=== PATIENT | female | born 1995 | race Caucasian/White ===

== ENCOUNTER 2021-11-02 14:55 | Emergency (ER) | payer MEDICAID, SELFPAY ==
[2021-11-02 15:40] VITALS: BP 135/63; PULSE 103; RESP 20; TEMP 37.2; O2SAT 98; BMI 39.9
[2021-11-02 17:24] LABS: MANUAL DIFF FLAG NO
[2021-11-02 17:36] LABS: Basophils Percent Auto 0.5 % (0-2); Eosinophils Percent Auto 0.3 % (0-4); Hematocrit 38.2 % (37.0-47.0); Hemoglobin 12.1 g/dl (12.0-16.0); Imm Gran Abs Auto 0.05 X10*3/uL (0.00-0.03); Imm Gran Pct Auto 0.8 % (0.0-0.4); Lymphocytes Absolute Auto 0.5 X10*3/uL (1.2-4.9); Lymphocytes Percent Auto 8.2 % (20-40); Mean Corpuscular HGB Conc 31.7 g/dl (31.0-35.0); Mean Corpuscular Hemoglobin 23.7 pg (27.0-33.0); Mean Corpuscular Volume 74.9 fL (80.0-98.0); Monocytes Absolute Auto 0.6 X10*3/uL (0.1-1.2); Monocytes Percent Auto 9.1 % (2-11); Neutrophils Absolute Auto 5.4 x10*3/uL (2.0-8.3); Neutrophils Percent Auto 81.1 % (45-73); Platelet Count 259 X10*3/uL (160-400); Red Cell Distribution Width 14.6 % (11.0-16.0); White Blood Count 6.6 X10*3/uL (4.8-10.8)
[2021-11-02 17:43] LABS: Anion Gap 11 (12-20); Blood Urea Nitrogen 10 mg/dL (9-16); Calcium 9.3 mg/dL (8.4-10.2); Carbon Dioxide 27 mmol/L (22-29); Chloride 104 mmol/L (96-108); Creatinine Clr Calc Pharmacy 142.6; Estimated Glomerular Filt Rate > 60; Glucose Random 97 mg/dL (60-115); Sodium 138 mmol/L (135-145)
[2021-11-02 21:52] VITALS: BP 129/79; PULSE 108; RESP 19; TEMP 38.7; O2SAT 98
--- NOTE | 2021-11-02 22:15 | ED_ITS ---
HPI - Nausea/Vomiting/Diarrhea General Chief complaint: Nausea/Vomiting/Diarrhea Stated complaint: Fever/Vomiting Source: patient Mode of arrival: ambulatory Limitations: no limitations History of Present Illness HPI Narrative: 26-year-old female presents with 1 day of fevers, headache, nausea and vomiting. MD elicited complaint: nausea and vomiting Onset (ago): day(s) (1) Description of vomiting: watery Associated nausea: Yes Associated abdominal pain: No Location of pain: none Exacerbating factors: movement and exertion Relieving factors: rest Context: sick contacts Associated symptoms: myalgias, cough, fever/chills, headaches, loss of appetite and nausea/vomiting Related Data Allergies Allergy/AdvReac Type Severity Reaction Status Date / Time No Known Allergies Allergy Unverified 03/25/20 16:32 Review of Systems Review of Systems: Constitutional: No Weight loss, positive Fever, positive Chills, No Night S weats, positive Fatigue, No Malaise ENT/Mouth: No Hearing loss, No Ear Pain, No Nasal Congestion, No Sinus Pain, No Hoarseness, No sore throat, No Rhinorrhea, No Swallowing Difficulty Eyes: No Eye Pain, No Swelling, No Redness, No Foreign Body, No Discharge, No Vision Changes Cardiovascular: No Chest Pain, No SOB, No Dyspnea on Exertion, No Orthopnea, No Edema, No Palpitations Respiratory: Positive Cough, No Sputum, No Wheezing, No Smoke Exposure, No Dyspnea Gastrointestinal: Positive Nausea, Positive Vomiting, no Diarrhea, no abdominal Pain, No Hematochezia, No Melena Genitourinary: no irregular bleeding, No Dysuria, No Urinary Frequency, No Hematuria, No Urinary Incontinence, No Urgency, No Flank Pain, No Urinary Flow Changes, No Hesitancy Musculoskeletal: No joint pain, No Myalgias, No Joint Swelling Skin: No Skin Lesions, No rash Neuro: No Weakness, No Numbness, No Paresthesias, No Loss of Consciousness, No Dizziness, No Headache Psych: No Anxiety/Panic, No Depression, No SI/HI/AH/VH, No Social Issues Heme/Lymph: No Bruising, No Bleeding,No Lymphadenopathy Endocrine: No Polyuria, No Polydipsia, No Temperature Intolerance Yes all other systems are reviewed and are negative Gastrointestinal: Gastrointestinal: Reports nausea PMFSH Past Medical History Attestation statement: The following information was validated with the patient. Source: old records reviewed Medical History No known health problems Social History Social History Alcohol intake: never Patient Tobacco Use Status: Current everyday Tobacco user Use of substances other than those prescribed or required for medical reasons: No Advance Directives: No Advance Directives Information Provided: No Patient : No Physical Exam Vital Signs: Vital Signs: Last Vital Signs Temp 101.6 F H 11/02/21 21:52 Pulse 108 H 11/02/21 21:52 Resp 19 11/02/21 21:52 BP 129/79 11/02/21 21:52 Pulse Ox 98 11/02/21 21:52 BMI result Body Mass Index 39.9 Appearance: Alert. Oriented X3. Mild distress. Eyes: Pupils equal, round and reactive to light. EOMI. Sclera nonicteric. ENT: Pharynx normal. Dry mucous membranes. Neck: Normal inspection. Neck supple. CVS: Tachycardic heart rate and rhythm. Apical pulse with pulses to extremities. Respiratory: No respiratory distress. Breath sounds normal. Abdomen: Soft and nontender. Skin: Skin warm and dry. Normal skin color. Normal skin turgor. Extremities: No lower extremity edema. Gait well-balanced well coordinated. Neuro: No motor deficit. No sensory deficit. Cranial nerves 2-12 intact. Course Course Course Narrative: 26-year-old female presents with 1 day of flu-like symptoms. 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 Labs drawn while patient was in the emergency department waiting room. Unremarkable, will order influenza COVID test. In the interim, will give Zofran and Toradol for fever management as well as 1 L of fluids. 22:45 influenza positive. 23:24 patient states to feel better after L of fluids and Zofran. Will discharge home with supportive measures. Patient verbalizes understanding of and agrees to plan of care. Verbalized understanding of signs and symptoms indicating need for emergent intervention. MDM - Nausea/Vomiting/Diarrhea MDM Narrative Medical decision making narrative: Influenza, COVID Differential Diagnosis Differential diagnosis: Likely gastroenteritis and dehydration Medical Records Attestation: I reviewed the patient's medical records. Lab Data Attestation: I reviewed the patient's lab results. Result diagrams: 11/02/21 17:18 11/02/21 17:18 Labs: Lab Results 11/02/21 11/02/21 11/02/21 Range/Units 17:18 17:18 21:56 WBC 6.6 (4.8-10.8) X10*3/uL RBC 5.10 (4.20-5.50) X10*6/uL Hgb 12.1 (12.0-16.0) g/dl Hct 38.2 (37.0-47.0) % MCV 74.9 L (80.0-98.0) fL MCH 23.7 L (27.0-33.0) pg MCHC 31.7 (31.0-35.0) g/dl RDW 14.6 (11.0-16.0) % Plt Count 259 (160-400) X10*3/uL MPV 10.0 (9.4-12.3) fL Immature Gran % (Auto) 0.8 H (0.0-0.4) % Neut % (Auto) 81.1 H (45-73) % Lymph % (Auto) 8.2 L (20-40) % [place] % (Auto) 9.1 (2-11) % Eos % (Auto) 0.3 (0-4) % Baso % (Auto) 0.5 (0-2) % Lymph # (Auto) 0.5 L (1.2-4.9) X10*3/uL [place] # (Auto) 0.6 (0.1-1.2) X10*3/uL Eos # (Auto) 0.0 (0.0-0.4) X10*3/uL Baso # (Auto) 0.0 (0.0-0.2) X10*3/uL Abs Immat Gran (auto) 0.05 H (0.00-0.03) X10*3/uL Absolute Neuts (auto) 5.4 (2.0-8.3) x10*3/uL Absolute Nucleated RBC 0.000 (0.0-0.012) X10*3/uL Nucleated RBC % (auto) 0.0 (0.0-0.2) /100WBC Sodium 138 (135-145) mmol/L Potassium 4.0 (3.3-5.1) mmol/L Chloride 104 (96-108) mmol/L Carbon Dioxide 27 (22-29) mmol/L Anion Gap 11 L (12-20) BUN 10 (9-16) mg/dL Creatinine 0.74 (0.5-1.4) mg/dL Estim Creat Clear Calc 142.6 Estimated GFR > 60 Random Glucose 97 (60-115) mg/dL Calcium 9.3 (8.4-10.2) mg/dL COVID-19 (ALEX) (Negative) COVID-19 Clin Com Influenza Type A (JEANIE) Positive A (Negative) Influenza Type B (JEANIE) Negative (Negative) Influenza A & B Note See Note 11/02/21 Range/Units 21:56 WBC (4.8-10.8) X10*3/uL RBC (4.20-5.50) X10*6/uL Hgb (12.0-16.0) g/dl Hct (37.0-47.0) % MCV (80.0-98.0) fL MCH (27.0-33.0) pg MCHC (31.0-35.0) g/dl RDW (11.0-16.0) % Plt Count (160-400) X10*3/uL MPV (9.4-12.3) fL Immature Gran % (Auto) (0.0-0.4) % Neut % (Auto) (45-73) % Lymph % (Auto) (20-40) % [place] % (Auto) (2-11) % Eos % (Auto) (0-4) % Baso % (Auto) (0-2) % Lymph # (Auto) (1.2-4.9) X10*3/uL [place] # (Auto) (0.1-1.2) X10*3/uL Eos # (Auto) (0.0-0.4) X10*3/uL Baso # (Auto) (0.0-0.2) X10*3/uL Abs Immat Gran (auto) (0.00-0.03) X10*3/uL Absolute Neuts (auto) (2.0-8.3) x10*3/uL Absolute Nucleated RBC (0.0-0.012) X10*3/uL Nucleated RBC % (auto) (0.0-0.2) /100WBC Sodium (135-145) mmol/L Potassium (3.3-5.1) mmol/L Chloride (96-108) mmol/L Carbon Dioxide (22-29) mmol/L Anion Gap (12-20) BUN (9-16) mg/dL Creatinine (0.5-1.4) mg/dL Estim Creat Clear Calc Estimated GFR Random Glucose (60-115) mg/dL Calcium (8.4-10.2) mg/dL COVID-19 (ALEX) Negative (Negative) COVID-19 Clin Com See Note Influenza Type A (JEANIE) (Negative) Influenza Type B (JEANIE) (Negative) Influenza A & B Note Discharge Plan Discharge Clinical Impression: Influenza A Patient Disposition: Home, Self-Care Instructions: Influenza (ED) Additional Instructions: You tested positive for influenza A. Please drink plenty of fluids. Alternate Tylenol 650 mg every 6 hours and Motrin 600 mg every 6 hours as needed for fever and pain management. Write down what time you take these medications to prevent accidental overdose. Follow-up with primary care physician as needed. Return to the emergency department if symptoms worsen. Thank you for choosing this emergency department for evaluation. Please follow-up with primary care physician as needed. Return to the emergency department for any new, concerning, or worsening symptoms. Referrals: Magalys Leslie DO [Primary Care Provider] - (Influenza a) Stand Alone Forms: Work/School Release
[2021-11-02 22:16] LABS: IDNOW Serial# 16C4AD1C
[2021-11-02 22:17] LABS: COVID-19 Test Negative (Negative); Influenza A Positive (Negative); Influenza B2 Negative (Negative)
[2021-11-02] MEDS: 0.9 % Sodium Chloride 1,000 ML 999 ML IVCONT (22:42)
[2021-11-02] MEDS: ondansetron HCL 4 MG/2 ML VIAL IVPUSH (22:44)
[2021-11-02] MEDS: Ketorolac Tromethamine 30 MG/ML VIAL IVPUSH (22:44)
== END 2021-11-03 00:27 | disposition home or self-care (01) ==
PROVIDERS: Emergency Provider Emergency Medicine; PCP Family Medicine
DX: J10.1 Influenza due to other identified influenza virus with other respiratory manifestations (principal); Z20.822 Contact with and (suspected) exposure to COVID-19
CPT/HCPCS: 36415; 80048; 85025; 87502; 87635; 96361; 96374; 96375; 99284; J1885; J2405

== ENCOUNTER 2022-06-15 10:15 | Emergency (ER) | payer MEDICAID, SELFPAY ==
[2022-06-15 10:24] VITALS: BP 121/72; PULSE 77; RESP 20; TEMP 36.8; O2SAT 100; BMI 38.2
--- NOTE | 2022-06-15 10:44 | ED.URI ---
HPI - URI/Sore Throat General Chief Complaint: Upper Respiratory Symptoms Stated Complaint: Sore throat/Fever/Ear pain Time Seen by Provider: 06/15/22 10:37 Source: patient and family (fiance at bedside) Mode of arrival: ambulatory Limitations: no limitations History of Present Illness HPI Narrative: Patient is a 26 year old female with no siginificatnt PMH who presents today with a 3 day history of sore throat, headache and body aches. Patient reports that these symptoms started all together but the body aches resolved after a day. Patient also reports a fever of 101 F, two days ago which resolved after taking OTC tylenol. Patient reports associated symptom of sinus pressure, nasal congestion and right ear pain that began a day ago. Patient denies any discharge or loss of hearing in her right ear. Patient denies cough, SOB, dyspnea on exertion, wheezing, nausea, vomiting, diarrhea and abdominal pain. Patient denies recent travel, recent hospitalization and sick contacts. Patient denies any other issues, concerns or complaints at this time. MD elicited complaint: fever (101 F), sore throat, nasal congestion and sinus pain Onset (ago): day(s) (3 days) Consistency: intermittent Severity: mild Able to tolerate fluids by mouth: Yes Exacerbating factors: nothing Relieving factors: OTC cold medicine Associated symptoms: fever, headache, nasal congestion, sore throat and ear pain (right ear pain) Treatments prior to arrival: acetaminophen Related Data Previous Rx's Medication Instructions Recorded amoxicillin 875 mg-potassium 1 tab PO BID pharyngitis 10 days 06/15/22 clavulanate 125 mg tablet #20 tabs Allergies Allergy/AdvReac Type Severity Reaction Status Date / Time No Known Allergies Allergy Unverified 03/25/20 16:32 Review of Systems Review of Systems: Constitutional : No Weight loss, + Fever of 101F, No Chills, No Night Sweats, No Fatigue, No Malaise ENT/Mouth : No Hearing loss, + right ear Pain, + Nasal Congestion, + Sinus Pain, No Hoarseness, + sore throat, No Rhinorrhea, No Swallowing Difficulty Eyes: No Eye Pain, No Swelling, No Redness, No Foreign Body, No Discharge, No Vision Changes Cardiovascular : No Chest Pain, No SOB, No Dyspnea on Exertion, No Orthopnea, No Edema, No Palpitations Respiratory : No Cough, No Sputum, No Wheezing, No Smoke Exposure, No Dyspnea Gastrointestinal : No Nausea, No Vomiting, No Diarrhea, No Constipation, No abdominal Pain, No Hematochezia, No Melena Genitourinary : no irregular bleeding, No Dysuria, No Urinary Frequency, No Hematuria, No Urinary Incontinence, No Urgency, No Flank Pain, No Urinary Flow Changes, No Hesitancy Musculoskeletal : No joint pain, No Myalgias, No Joint Swelling Skin : No Skin Lesions, No rash Neuro : No Weakness, No Numbness, No Paresthesias, No Loss of Consciousness, No Dizziness, + Headache Psych : No Anxiety/Panic, No Depression, No SI/HI/AH/VH, No Social Issues, Heme/Lymph: No Bruising, No Bleeding,No Lymphadenopathy Endocrine : No Polyuria, No Polydipsia, No Temperature Intolerance Yes all other systems are reviewed and are negative [facility] [place] Past Medical History Attestation statement: The following information was validated with the patient. Source: old records reviewed, obtained from family and nursing notes reviewed Medical History No known health problems Social History Social History Alcohol intake: never Patient Tobacco Use Status: Current everyday Tobacco user Advance Directives: No Advance Directives Information Provided: No Physical Exam Vital Signs: Vital Signs: Last Vital Signs Temp 98.3 F 06/15/22 10:24 Pulse 77 06/15/22 10:24 Resp 20 06/15/22 10:24 BP 121/72 06/15/22 10:24 Pulse Ox 100 06/15/22 10:24 O2 Del Method 06/15/22 10:24 BMI result Body Mass Index 38.2 vital signs have been reviewed as normal and appeared to be correct. Blood pressure normal. Heart rate normal. Respiration rate normal. Temperature normal. Oxygen saturation normal. Appearance: Alert. Oriented X3. No acute distress. Head: Normal external exam. Normocephalic. Atraumatic. Eyes: PERRLA. EOMI. Conjunctiva and sclera normal. Eyelids normal. ENT: EAC normal. TM's Normal.Tenderness elicited during palpation of right tragus Pharynx normal. Uvula midline. Moist mucous membranes. White exudates noted in back of throat. No lesions/ulcerations or masses noted on the tongue. Normal voice. No trismus noted. No drooling noted. No muffled voice noted. Neck: Normal inspection. Neck supple. FROM. +anterior cervical lymphadenopathy with tenderness to palpation of neck bilaterally. Thyroid Normal. No tracheal deviation noted. No crepitus is noted. No neck mass noted. No signs of trauma noted. CVS: Normal heart rate and rhythm. Heart sound normal. No murmurs/rales/gallops. Respiratory: No respiratory distress. Painless inspiration. Breath sounds normal. No wheezes/rales/rhonchi noted. Chest non tender. No crepitus is noted. No accessory muscle usage noted or decreased air movement noted. No signs of trauma. Abdomen: Soft and non tender. Non distended. Back: Full range of motion noted. Non tender. Skin: Skin warm and dry. Normal skin color. Normal skin turgor. No rashes/lesions/lacerations noted. Extremities: Extremities exhibit normal range of motion and non tender. Neuro: Oriented X 3. No motor deficit. No sensory deficit. Normal steady gait. No focal neuro deficits noted. CN's II-XII intact bilaterally? Vascular: Normal cap refill. No cyanosis noted to upper extremity nails. Course Course Course Narrative: Patient is a 26 year old female with no siginificatnt PMH who presents today with a 3 day history of sore throat, headache and body aches, fever, right ear pain. Patient denies cough, SOB, dyspnea on exertion, trouble swallowing, wheezing, nausea, vomiting, diarrhea and abdominal pain. Patient denies recent travel, recent hospitalization and sick contacts. On physical exam, patient was alert and oriented and in no acute respiratory distress. Mucous membranes were moist and pink with white exudates noted on back of throat. Patient had anterior cervical lymphadenopathy with tenderness to palpation of anterior neck bilaterally. Tenderness elicited during palpation of right tragus. No abnormal discharge noted in right ear. TM intact with no signs of perforation. Patient's swab came back positive for strep throat confirming our suspicion for acute bacterial pharyngitis. Plan: Patient will be treated with amoxicillin-clavulanate PO BID for 10 days. Reevaluation(s) Reevaluation #1: patient negative for COVID/RSV/ flu. Patient positive for bacterial pharyngitis. Will treat with the Augmentin for 10 days instructions return if any new or worsening symptoms. Patient understands agrees with this plan. Time: 11:44 Discharge Plan Discharge Clinical Impression: Acute bacterial pharyngitis Patient Disposition: Home, Self-Care Instructions: Pharyngitis (ED) Prescriptions: New amoxicillin-pot clavulanate 875-125 mg tablet 1 tab PO BID 10 Days Qty: 20 0RF Referrals: Magalys Leslie DO [Primary Care Provider] - 2 days Stand Alone Forms: Work/School Release
[2022-06-15 10:58] LABS: Strep A Nucleic Acid Positive (Negative)
[2022-06-15 11:33] LABS: Influenza A PCR NEGATIVE (Negative); Influenza B PCR NEGATIVE (Negative); Resp Syncy Virus RNA Qual PCR NEGATIVE (Negative); SARS COV2 PCR INHOUSE NEGATIVE (Negative)
== END 2022-06-15 12:16 | disposition home or self-care (01) ==
PROVIDERS: Emergency Provider Emergency Medicine; PCP Family Medicine
DX: J02.9 Acute pharyngitis, unspecified (principal); H92.03 Otalgia, bilateral; R50.9 Fever, unspecified; R51.9 Headache, unspecified; Z20.822 Contact with and (suspected) exposure to COVID-19; F17.210 Nicotine dependence, cigarettes, uncomplicated; Z71.6 Tobacco abuse counseling
CPT/HCPCS: 0241U; 87651; 99283

== ENCOUNTER 2022-07-19 22:30 | Emergency (ER) | payer MEDICAID, SELFPAY ==
[2022-07-19 22:34] VITALS: BP 136/72; PULSE 77; RESP 18; TEMP 36.6; O2SAT 100; BMI 39.1
[2022-07-19 22:58] LABS: Appearance Urine Hazy; Color Urine Yellow; Glucose Urine UA Negative (Negative); Leukocyte Esterase Urine Trace (Negative); Nitrite Urine Negative (Negative); Specific Gravity - Urine 1.015 (1.005-1.025); UMIC TRIGGER UACC YES; Urine Blood Large (3+) (Negative); Urine Ketones Negative (Negative); Urine Protein 30 (1+) mg/dL (Neg-Trace)
[2022-07-19 23:01] LABS: UPreg QC Valid YES; Urine Pregnancy NEGATIVE (NEGATIVE)
[2022-07-19 23:06] LABS: Bacteria Urine 1+ (None Seen); Hyaline Casts Urine 0-2 /LPF (0-2); RBC Urine >20 /HPF (0-2); Squamous Epithelial Cell Urine 0-2 /HPF (0-2); UACC Culture Trigger YES; WBC Urine >50 /HPF (0-5)
--- NOTE | 2022-07-19 23:12 | ED_ITS ---
HPI - Female Genitourinary General Chief complaint: Urogenital-Female Stated complaint: burning when urinating Time Seen by Provider: 07/19/22 23:07 Source: patient Mode of arrival: ambulatory Limitations: no limitations History of Present Illness HPI Narrative: Patient comes to the emergency room complaining of 1 day of burning with urination, hematuria and frequency. No fever chills, no flank pain. Related Data Previous Rx's Medication Instructions Recorded amoxicillin 875 mg-potassium 1 tab PO BID pharyngitis 10 days 06/15/22 clavulanate 125 mg tablet #20 tabs nitrofurantoin 100 mg PO Q12H 7 days #13 caps 07/19/22 monohydrate/macrocrystals 100 mg capsule (Macrobid) phenazopyridine 100 mg tablet 100 mg PO TID 6 doses #6 tabs 07/19/22 Allergies Allergy/AdvReac Type Severity Reaction Status Date / Time No Known Allergies Allergy Verified 07/19/22 22:37 Review of Systems Review of Systems: Constitutional : No Weight loss, No Fever, No Chills, No Night Sweats, No Fatigue, No Malaise ENT/Mouth : No Hearing loss, No Ear Pain, No Nasal Congestion, No Sinus Pain, No Hoarseness, No sore throat, No Rhinorrhea, No Swallowing Difficulty Eyes: No Eye Pain, No Swelling, No Redness, No Foreign Body, No Discharge, No Vision Changes Cardiovascular : No Chest Pain, No SOB, No Dyspnea on Exertion, No Orthopnea, No Edema, No Palpitations Respiratory : No Cough, No Sputum, No Wheezing, No Smoke Exposure, No Dyspnea Gastrointestinal : No Nausea, No Vomiting, No Diarrhea, No Constipation, No abdominal Pain, No Hematochezia, No Melena Genitourinary : no irregular bleeding, complaining of dysuria, hematuria, frequency Musculoskeletal : No joint pain, No Myalgias, No Joint Swelling Skin : No Skin Lesions, No rash Neuro : No Weakness, No Numbness, No Paresthesias, No Loss of Consciousness, No Dizziness, No Headache Psych : No Anxiety/Panic, No Depression, No SI/HI/AH/VH, No Social Issues, Heme/Lymph: No Bruising, No Bleeding,No Lymphadenopathy Endocrine : No Polyuria, No Polydipsia, No Temperature Intolerance [facility] Past Medical History Medical History No known health problems Social History Social History Alcohol intake: never Patient Tobacco Use Status: Current everyday Tobacco user Advance Directives: No Advance Directives Information Provided: No Physical Exam Vital Signs: Vital Signs: Last Vital Signs Temp 97.9 F 07/19/22 22:34 Pulse 77 07/19/22 22:34 Resp 18 07/19/22 22:34 BP 136/72 07/19/22 22:34 Pulse Ox 100 07/19/22 22:34 O2 Del Method 07/19/22 22:34 BMI result Body Mass Index 39.1 Const: Other: Appearance: Alert. Oriented X3. No acute distress. Well-appearing Eyes: Pupils equal, round and reactive to light. ENT: Pharynx normal. Neck: Normal inspection. Neck supple. No lymph nodes noted. No crepitus CVS: Normal heart rate and rhythm. Pulses normal. Normal S1 and S2 Respiratory: No respiratory distress. Breath sounds normal. No Wheezing. No rales Abdomen: Soft and nontender. No rigidity. No distention. No flank pain Skin: Skin warm and dry. Normal skin color. Normal skin turgor. Extremities: No lower extremity edema. No Lacerations. No Rash Neuro: Oriented X 3. No motor deficit. No sensory deficit. Moving all extremities. No slurred speech. CN 2 through 12 grossly intact Psych: calm, cooperative, normal affect Course Course Course Narrative: Patient was given the 1st dose of Macrobid and phenazopyridine in the emergency room. Pyelonephritis not suspected. Vitals normal, sepsis not suspected Medical Decision Making Differential Diagnosis Differential Diagnoses: The differential diagnosis associated with the presentation includes (UTI, dysuria) Lab Data MDM Lab Attestation statement: I reviewed the patient's lab results. Labs: Lab Results 07/19/22 07/19/22 Range/Units 22:47 22:47 Urine Color Yellow Urine Appearance Hazy Urine pH 7.0 (5.0-9.0) Ur Specific [place] 1.015 (1.005-1.025) Urine Protein 30 (1+) H (Neg-Trace) mg/dL Urine Glucose (UA) Negative (Negative) mg/dL Urine Ketones Negative (Negative) mg/dL Urine Blood Large (3+) H (Negative) Urine Nitrite Negative (Negative) Ur Leukocyte Esterase Trace H (Negative) Urine RBC >20 H (0-2) /HPF Urine WBC >50 H (0-5) /HPF Ur Squamous Epith Cells 0-2 (0-2) /HPF Urine Bacteria 1+ (None Seen) Hyaline Casts 0-2 (0-2) /LPF Urine Test NEGATIVE (NEGATIVE) Discharge Plan Discharge Clinical Impression: Urinary tract infection Patient Disposition: Home, Self-Care Instructions: Urinary Tract Infection in Women (ED) Additional Instructions: Please note that phenazopyridine of the medications will make your urine look very red/orange. Please follow-up with your primary care physician tomorrow. If you have any worsening or new symptoms, please return to the emergency room or call 911. Prescriptions: New nitrofurantoin monohyd/m-cryst [Macrobid] 100 mg capsule 100 mg PO Q12H 7 Days Qty: 13 0RF Rx Instructions: must administer with a meal/food phenazopyridine 100 mg tablet 100 mg PO TID Qty: 6 0RF No Action amoxicillin-pot clavulanate 875-125 mg tablet 1 tab PO BID 10 Days Qty: 20 0RF
[2022-07-19] MEDS: Phenazopyridine HCL 100 MG TABLET PO (23:29)
[2022-07-19] MEDS: Nitrofurantoin Monohyd/M-Cryst 100 MG CAPSULE PO (23:29)
== END 2022-07-19 23:32 | disposition home or self-care (01) ==
PROVIDERS: Emergency Provider Emergency Medicine; PCP Family Medicine
DX: N39.0 Urinary tract infection, site not specified (principal); R30.0 Dysuria; F17.210 Nicotine dependence, cigarettes, uncomplicated; Z71.6 Tobacco abuse counseling; Z79.899 Other long term (current) drug therapy
CPT/HCPCS: 81001; 81003; 81025; 87086; 87088; 87186; 99283

== ENCOUNTER 2022-12-13 18:30 | Emergency (ER) | payer MEDICAID, SELFPAY ==
[2022-12-13 18:40] VITALS: BP 138/90; PULSE 84; RESP 18; TEMP 36.6; O2SAT 98; BMI 39.9
--- NOTE | 2022-12-13 18:43 | ED_ITS ---
HPI - General Adult General Chief complaint: General Medical Stated complaint: congestion, sore throat, nauseous Time Seen by Provider: 12/13/22 18:48 Source: patient, RN notes reviewed and old records reviewed Mode of arrival: ambulatory Limitations: no limitations History of Present Illness HPI narrative: 27-year-old female presents for evaluation of congestion, sore throat. Patient reports that she has had congestion for the last 2 weeks She states that her symptoms were worsening and now she has a sore throat, nausea and body aches that started today She has not taken any medication or bleeding her symptoms. Denies any fevers or chills The patient has a dry cough denies any shortness of breath Patient denies any medical history Related Data Previous Rx's Medication Instructions Recorded amoxicillin 875 mg-potassium 1 tab PO BID pharyngitis 10 days 06/15/22 clavulanate 125 mg tablet #20 tabs nitrofurantoin 100 mg PO Q12H 7 days #13 caps 07/19/22 monohydrate/macrocrystals 100 mg capsule (Macrobid) phenazopyridine 100 mg tablet 100 mg PO TID 6 doses #6 tabs 07/19/22 amoxicillin 875 mg-potassium 1 tab PO BID #20 tabs 12/13/22 clavulanate 125 mg tablet Allergies Allergy/AdvReac Type Severity Reaction Status Date / Time No Known Allergies Allergy Verified 12/13/22 18:40 Review of Systems Constitutional: Constitutional: Denies chills, Denies fever(s) and Reports headache(s) ENT: Reports headache(s), Reports sinus pressure and Reports sore throat Cardiovascular: Cardiovascular: Denies dyspnea Respiratory: Respiratory: Reports cough and Denies dyspnea Gastrointestinal: Gastrointestinal: Denies abdominal pain and Reports nausea Neurologic: Reports headache(s) [facility] Past Medical History Medical History No known health problems Social History Social History Alcohol intake: never Patient Tobacco Use Status: Current everyday Tobacco user Advance Directives: No Advance Directives Information Provided: No Physical Exam ED Vital Signs: Vital Signs - 24 hr 12/13/22 18:40 Temperature 98 F Pulse Rate 84 Respiratory Rate 18 Blood Pressure 138/90 H Pulse Oximetry 98 Oxygen Delivery Method Room Air BMI result Body Mass Index 39.9 Const General: healthy appearing, comfortable, no acute distress, alert and awake Nutritional Appearance: well nourished Orientation/consciousness: patient oriented x3 HENMT Head: Yes normocephalic and Yes atraumatic Face and sinus: No sinuses nontender and Yes sinus tenderness Throat: Yes posterior oropharynx normal Eyes Eyelids: Yes eyelids normal Conjunctivae: conjunctivae normal Sclerae: sclerae normal Corneas: corneas normal Pupils: Equal, round and reactive pupils present EOM: EOMs intact bilaterally Neck Neck: Yes full ROM Resp Effort & Inspection: normal respiratory effort, able to speak in complete sentences, no audible wheezes and not labored Auscultation: clear to auscultation bilaterally Skin General skin exam: no rashes or lesions noted Neuro General: patient oriented x3 Cranial nerves: Yes Equal, round and reactive pupils present and Yes Bilaterally intact EOM present Cognition (Neuro): normal cognition Extrem Other: Moving all extremities well without any obvious deformities Medical Decision Making Medical Decision Making MDM Narrative: Patient has had congestion for last 2 weeks is not in worsening symptoms. Likely developed bacterial sinusitis, will treat with Augmentin twice daily for 10 days Differential Diagnosis Acute sinusitis Viral sinusitis Bacterial sinusitis Upper respiratory infection Viral syndrome Influenza Discharge Plan Discharge Clinical Impression: Acute bacterial sinusitis Patient Disposition: Home, Self-Care Instructions: Sinusitis (ED) Additional Instructions: Take Augmentin twice daily for the next 10 days. Take this medication with food You may use Motrin or Tylenol for fevers, body aches. Drink lots of fluids You may want to use an [id number] decongestant as well to help your symptoms Prescriptions: New amoxicillin-pot clavulanate 875-125 mg tablet 1 tab PO BID Qty: 20 0RF No Action amoxicillin-pot clavulanate 875-125 mg tablet 1 tab PO BID 10 Days Qty: 20 0RF nitrofurantoin monohyd/m-cryst [Macrobid] 100 mg capsule 100 mg PO Q12H 7 Days Qty: 13 0RF Rx Instructions: must administer with a meal/food phenazopyridine 100 mg tablet 100 mg PO TID Qty: 6 0RF
== END 2022-12-13 18:56 | disposition home or self-care (01) ==
PROVIDERS: Emergency Provider Student in an Organized Health Care Education/Training Program; PCP Family Medicine
DX: J01.90 Acute sinusitis, unspecified (principal)
CPT/HCPCS: 99282; 99283

== ENCOUNTER 2023-01-26 11:58 | Outpatient (REF) | payer MEDICAID, SELFPAY ==
[2023-01-26 14:40] LABS: MANUAL DIFF FLAG NO
[2023-01-26 14:51] LABS: Basophils Absolute Auto 0.1 X10*3/uL (0.0-0.2); Basophils Percent Auto 0.9 % (0-2); Eosinophils Absolute Auto 0.3 X10*3/uL (0.0-0.4); Eosinophils Percent Auto 4.7 % (0-4); Hematocrit 37.3 % (37.0-47.0); Hemoglobin 11.5 g/dl (12.0-16.0); Imm Gran Abs Auto 0.02 X10*3/uL (0.00-0.03); Imm Gran Pct Auto 0.3 % (0.0-0.4); Lymphocytes Absolute Auto 2.7 X10*3/uL (1.2-4.9); Lymphocytes Percent Auto 40.9 % (20-40); Mean Corpuscular HGB Conc 30.8 g/dl (31.0-35.0); Mean Corpuscular Hemoglobin 23.8 pg (27.0-33.0); Mean Corpuscular Volume 77.1 fL (80.0-98.0); Mean Platelet Volume 10.8 fL (9.4-12.3); Monocytes Absolute Auto 0.5 X10*3/uL (0.1-1.2); Neutrophils Percent Auto 46.2 % (45-73); Platelet Count 277 X10*3/uL (160-400); Red Blood Count 4.84 X10*6/uL (4.20-5.50); Red Cell Distribution Width 14.6 % (11.0-16.0); White Blood Count 6.6 X10*3/uL (4.8-10.8)
[2023-01-26 15:03] LABS: Estimated Average Glucose 103 mg/dL; Hemoglobin A1C 103.0208 umol/L; Hemoglobin A1c % 5.2 %
[2023-01-26 16:10] LABS: Alanine Aminotransferase 18 U/L (0-31); Alkaline Phosphatase 65 U/L (39-117); Anion Gap 11 (12-20); Aspartate Amino Transferase 13 U/L (5-31); Bilirubin Direct 0.1 mg/dL (0.0-0.5); Bilirubin Total 0.3 mg/dL (0.0-1.0); Blood Urea Nitrogen 14 mg/dL (9-16); Calcium 9.2 mg/dL (8.4-10.2); Carbon Dioxide 26 mmol/L (22-29); Chloride 106 mmol/L (96-108); Cholesterol 126 mg/dL; Estimated Glomerular Filt Rate > 60; Free T4 (Free Thyroxine) 1.08 ng/dL (0.71-1.85); Glucose Random 58 mg/dL (60-115); HDL Cholesterol 44 mg/dL; LDL Cholesterol Calculated 69 mg/dl; Potassium 3.8 mmol/L (3.3-5.1); Sodium 139 mmol/L (135-145); Thyroid Stimulating Hormone 1.64 uIU/mL (0.32-4.0); Total Protein 7.6 g/dL (6.5-8.0); Triglycerides 66 mg/dL; Vitamin D 25-OH Total 18.7 ng/mL (>30)
[2023-01-26 18:11] LABS: CT PCR NOT DETECTED (Not Detect.); NG PCR NOT DETECTED (Not Detect.)
[2023-01-27 13:19] LABS: H Pylori Breath Test Positive (Negative)
[2023-01-29 08:37] LABS: Syphilis Screen Nonreactive (Nonreactive)
[2023-01-29 08:47] LABS: HBS Num1 4.46 mIU/mL (0-7.99); HBsAGNum1 0.45 S/CO (0.00-0.99); HIV AB/AG Nonreactive (Nonreactive); HIV Num 1 0.05 S/CO (0.00-0.99); Hepatitis B Surface Antigen Negative (Negative); ~Hepatitis B Surface Antibody NONREACTIVE (Nonreactive)
[2023-01-29 09:13] LABS: ~HepC Num1 0.09 S/CO (0.00-0.79); ~Hepatitis C Antibody Nonreactive (Nonreactive)
[2023-01-30 07:08] LABS: Herpes Simplex Type 1 IgG <0.90 index
== END 2023-01-26 11:59 | disposition home or self-care (01) ==
LOC: HO.HHCL 11:58
PROVIDERS: Visit Provider Family Medicine
DX: Z00.00 Encounter for general adult medical examination without abnormal findings (principal); Z11.4 Encounter for screening for human immunodeficiency virus [HIV]; Z11.3 Encounter for screening for infections with a predominantly sexual mode of transmission
CPT/HCPCS: 0353U; 36415; 80048; 80061; 80076; 82306; 83013; 83036; 84439; 84443; 85025; 86695; 86696; 86706; 86780; 86803; 87340; 87389

== ENCOUNTER 2023-05-02 12:25 | Outpatient (REF) | payer MEDICAID, SELFPAY ==
[2023-05-02 14:33] LABS: Glucose Random 79 mg/dL (60-115)
[2023-05-02 14:56] LABS: Insulin 82 uU/mL (2-29)
[2023-05-03 16:30] LABS: H Pylori Breath Test Negative (Negative)
[2023-05-05 20:09] LABS: C Peptide 8.46 ng/mL (0.80-3.85)
== END 2023-05-02 12:26 | disposition home or self-care (01) ==
LOC: HO.HHCL 12:25
PROVIDERS: Visit Provider Family Medicine
DX: E16.2 Hypoglycemia, unspecified (principal)
CPT/HCPCS: 36415; 82947; 83013; 83525; 84681

== ENCOUNTER 2024-01-05 11:27 | Emergency (ER) | payer MEDICAID, SELFPAY ==
--- NOTE | ~2024-01-05 | XR_ITS ---
EXAMINATION: XR LUMBOSACRAL SPINE CLINICAL INFORMATION: Left lumbar pain COMPARISON: None available. TECHNIQUE: Three views of the lumbosacral spine. FINDINGS: Mild leftward curvature of the lumbar spine. The vertebral body sagittal alignment is maintained. Vertebral body heights are maintained. No evidence of acute compression fracture. Mild L5-S1 disc height loss. Mild facet degeneration at L5-S1. Radiopaque density projected over the superior sacrum, likely overlying the patient. Surgical clips in the right upper quadrant. Nonobstructive bowel gas pattern. No suspicious soft tissue calcification. XR/XR lumbar spine 2-3V IMPRESSION: No radiographic evidence of acute fracture. L5-S1 disc degeneration.
--- NOTE | ~2024-01-05 | XR_ITS ---
EXAMINATION: XR chest 2V CLINICAL INFORMATION: Reason for Exam atraumatic left lumbar pain COMPARISON: 2015 TECHNIQUE: XR chest 2V, 2 Views Lungs and Lisseth: Both lungs are clear. Pleura: Normal. Costophrenic angles are sharp. No pneumothorax. Heart: The heart is normal in size. Mediastinum: The mediastinum is within normal limits.. Bones: Skeletal structures included are normal for patient's age. XR/XR chest 2V IMPRESSION: No radiographic evidence of acute cardiopulmonary disease.
[2024-01-05 11:32] VITALS: BP 148/85; PULSE 82; RESP 18; TEMP 36.4; O2SAT 100; BMI 41.9
--- NOTE | 2024-01-05 11:32 | ED.BACK ---
HPI - Back Pain/Injury General Chief Complaint: Back Pain/Injury Stated Complaint: low back pain, no injury Time Seen by Provider: 01/05/24 11:56 Source: patient and RN notes reviewed Mode of arrival: ambulatory Limitations: no limitations History of Present Illness ED Provider: Rose Aguiar PA-C HPI Narrative: This is a 28-year-old female who presents emergency department with complaints of low back pain x3 days. Patient denies any recent trauma or injury to her back. 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 She also states that she worked 11 hours on Sunday which caused her pain to worsened. She denies any numbness tingling or weakness. Denies history of back pain in the past. States that the pain is in her low back and does not radiate. No urinary or bowel incontinence or retention. No saddle anesthesia. She has been taking ibuprofen, last dose 2 hours ago with minimal relief. No other complaints or concerns at this time. Timing: constant Severity: moderate Similar Symptoms Previously: No Quality: aching Location: lumbar spine Exacerbating factors: movement Relieving factors: immobilization Associated symptoms: denies other symptoms Treatments prior to arrival: NSAIDS Related Data Previous Rx's ?Medication ?Instructions ?Recorded amoxicillin 875 mg-potassium 1 tab PO BID pharyngitis 10 days 06/15/22 clavulanate 125 mg tablet #20 tabs nitrofurantoin 100 mg PO Q12H 7 days #13 caps 07/19/22 monohydrate/macrocrystals 100 mg capsule (Macrobid) phenazopyridine 100 mg tablet 100 mg PO TID 6 doses #6 tabs 07/19/22 amoxicillin 875 mg-potassium 1 tab PO BID #20 tabs 12/13/22 clavulanate 125 mg tablet acetaminophen 500 mg tablet 1,000 mg (2 x 500 mg) PO Q8H PRN 01/05/24 (Tylenol Extra Strength) pain #30 tabs cyclobenzaprine 5 mg tablet 5 mg PO TID PRN muscle spasm #14 01/05/24 tabs ibuprofen 600 mg tablet 600 mg PO Q6H PRN pain #30 tabs 01/05/24 lidocaine 5 % topical patch 1 patch topical DAILY #30 ea 01/05/24 Allergies Allergy/AdvReac Type Severity Reaction Status Date / Time No Known Allergies Allergy Verified 01/05/24 11:34 Review of Systems Review of Systems: Yes all other systems are reviewed and are negative Constitutional: Constitutional: Reports as per [facility] Past Medical History Medical History No known health problems Social History Social History Alcohol intake: never Patient Tobacco Use Status: Current everyday Tobacco user Advance Directives: No Advance Directives Information Provided: Yes Do you have a plan to hurt others: No Plan Physical Exam Vital Signs: Vital Signs: Last Vital Signs Temp 97.6 F 01/05/24 11:32 Pulse 82 01/05/24 11:32 Resp 18 01/05/24 11:32 BP 148/85 H 01/05/24 11:32 Pulse Ox 100 01/05/24 11:32 O2 Del Method Room Air 01/05/24 11:32 BMI result Body Mass Index 41.9 Const: General: cooperative, comfortable and no acute distress Orientation/consciousness: patient oriented x3 Limitations: no limitations HEENT: Head: Yes normal to inspection, Yes normocephalic and Yes atraumatic Ears: hearing grossly normal bilaterally General nose exam: Normal external nose present Face and sinus: Yes normal facial exam Mouth: Normal oral and palatal mucosa present, oropharynx normal and moist mucous membranes Throat: Yes posterior oropharynx normal Eyes: General: appearance normal, both eyes and all related structures Eyelids: Yes eyelids normal Conjunctivae: conjunctivae normal Sclerae: sclerae normal Pupils: Equal, round and reactive pupils present EOM: EOMs intact bilaterally Neck: Neck: Yes normal visual inspection, Yes full ROM and Yes no lymphadenopathy Lymphatic: no lymphadenopathy noted Chest: Chest palpation & inspection: normal inspection of the chest Resp: Effort & Inspection: normal respiratory effort and able to speak in complete sentences Auscultation: clear to auscultation bilaterally, no crackles, no rales, no rhonchi and no wheezes Cardio: Rate: regular rate Rhythm: regular rhythm Heart sounds: S1 normal heart sound present and S2 normal heart sound present GI: Inspection: Yes normal to inspection Back/Spine/Pelvis: Other: Tenderness palpation along the midline spine with paraspinous muscle tenderness. Strength 5/5 in lower extremities. Distal sensation circulation intact. Skin: General skin exam: no rashes or lesions noted Trauma: no lacerations or abrasions Wounds: no wounds Neuro: General: patient oriented x3 and moves all extremities Cranial nerves: Yes Equal, round and reactive pupils present Extrem: General: Yes normal to inspection Right upper extremity: normal to inspection Left upper extremity: normal to inspection Right lower extremity: normal to inspection Left lower extremity: normal to inspection Course Course Course Narrative: This is a Rapid Medical Examination (RME) performed by Peggy Winter PA-C in triage. Full HPI, ROS, assessment and treatment plan per primary provider in the Main ED. 28 yo female here for eval of atraumatic left lumbar back pain which began yesterday morning. cannot recall what she was doing at onset. Pain worse w/ movement and does not radiate. Reports taking ibuprofen approximately 1 hour ago. Denies dysuria, hematuria, saddle anesthesia, numbness/tingling/weakness of the lower extremities. No IV drug use. History of spinal surgeries no midline spinous tenderness. no step off. no cvat. Plan: xr, UA ordered Reevaluation(s) Reevaluation #1: Patient re-evaluated, feeling better after receiving Valium and Toradol. X-ray revealing degenerative changes at the L5-S1 region. Discussed findings with patient. Patient discharged and advised to follow-up PCP. She understands agrees with plan. Patient stable for discharge. Medications Administered Discontinued Medications Generic Name Dose Route Start Last Admin Trade Name Freq PRN Reason Stop Dose Admin Acetaminophen 975 mg 01/05/24 12:53 01/05/24 13:06 Acetaminophen 325 Mg Tablet PO 01/05/24 12:54 975 mg ONCE ONE Administration Diazepam 2 mg 01/05/24 12:53 01/05/24 13:06 Diazepam 2 Mg Tablet PO 01/05/24 12:54 2 mg ONCE ONE Administration Medical Decision Making Medical Decision Making MDM Narrative: This is a 28-year-old female who presents emergency department with complaints of low back pain x2 days. No known trauma or injury. On arrival, patient mildly hypertensive at 148/85, all other vital signs within normal limits. She is tenderness palpation along her midline spine, and lumbar paraspinous muscles. This patient presents with back pain most consistent with lumbago. Differential diagnoses includes lumbago versus musculoskeletal spasm / strain versus sciatica. No back pain red flags on history or physical. Presentation not consistent with malignancy (lack of history of malignancy, lack of B symptoms), fracture (no trauma, no bony tenderness to palpation), cauda equina (no bowel or urinary incontinence/retention, no saddle anesthesia, no distal weakness), pyelonephritis (afebrile, no CVAT, no urinary symptoms). Given the clinical picture, with midline spine tenderness, x-ray obtained. No history of IVDA Differential Diagnosis Differential Diagnoses: The differential diagnosis associated with the presentation includes See above Admission/Observation Consideration of admission/observation: Escalation of care including admission/observation considered Escalation of care including admission/observation considered however given workup today not warranted at this time. Lab Data MDM Lab Attestation statement: I reviewed the patient's lab results. Urine without any signs of infection. Labs: Lab Results 01/05/24 Range/Units 11:56 Urine Color Yellow Urine Appearance Clear Urine pH 7.0 (5.0-9.0) Ur Specific [place] 1.020 (1.005-1.025) Urine Protein Negative (Neg-Trace) mg/dL Urine Glucose (UA) Negative (Negative) mg/dL Urine Ketones Negative (Negative) mg/dL Urine Blood Negative (Negative) Urine Nitrite Negative (Negative) Ur Leukocyte Esterase Negative (Negative) Urine Test NEGATIVE (NEGATIVE) Independent Interpretation I performed an independent interpretation of an: Plain X-Ray Interpretation: I reviewed the x-ray and agree with radiology report. Radiology Impression Discussion of test interpretation with radiology: I have reviewed the radiologist's reading. Radiologist Impression: EXAMINATION: XR chest 2V CLINICAL INFORMATION: Reason for Exam atraumatic left lumbar pain COMPARISON: 2016 TECHNIQUE: XR chest 2V, 2 Views Lungs and Lisseth: Both lungs are clear. Pleura: Normal. Costophrenic angles are sharp. No pneumothorax. Heart: The heart is normal in size. Mediastinum: The mediastinum is within normal limits.. Bones: Skeletal structures included are normal for patient's age. XR/XR chest 2V IMPRESSION: No radiographic evidence of acute cardiopulmonary disease. Dictated By: Dominick Woods MD Discharge Plan Discharge Clinical Impression: Back pain Patient Disposition: Home, Self-Care Instructions: Acute Low Back Pain (ED), Back Pain (ED) Additional Instructions: You were seen in the emergency department with complaints of back pain. Your x-ray shows L5-S1 disc degeneration. Please alternate between ibuprofen and Tylenol as needed for pain and symptoms. Take Flexeril as needed for muscle spasms. Please be advised that this can cause drowsiness not drink or drive taking this medication. If any new or worsening symptoms occur to worsening pain, fevers, chills, numbness, tingling, weakness, please return for re-evaluation. Prescriptions: New ibuprofen 600 mg tablet 600 mg PO Q6H PRN (Reason: pain) Qty: 30 0RF acetaminophen [Tylenol Extra Strength] 500 mg tablet 1,000 mg PO Q8H PRN (Reason: pain) Qty: 30 0RF cyclobenzaprine 5 mg tablet 5 mg PO TID PRN (Reason: muscle spasm) Qty: 14 0RF lidocaine 5 % adhesive patch,medicated 1 patch topical DAILY Qty: 30 0RF Rx Instructions: leave on most painful area for up to 12 hrs No Action amoxicillin-pot clavulanate 875-125 mg tablet 1 tab PO BID 10 Days Qty: 20 0RF nitrofurantoin monohyd/m-cryst [Macrobid] 100 mg capsule 100 mg PO Q12H 7 Days Qty: 13 0RF Rx Instructions: must administer with a meal/food phenazopyridine 100 mg tablet 100 mg PO TID Qty: 6 0RF amoxicillin-pot clavulanate 875-125 mg tablet 1 tab PO BID Qty: 20 0RF Discharge Date/Time: 01/05/24 15:14 Print Language: Paraguayan
[2024-01-05 12:05] LABS: Appearance Urine Clear; Color Urine Yellow; Glucose Urine UA Negative (Negative); Leukocyte Esterase Urine Negative (Negative); Nitrite Urine Negative (Negative); Urine Blood Negative (Negative); Urine Ketones Negative (Negative); Urine Protein Negative (Neg-Trace)
[2024-01-05 12:07] LABS: UPreg QC Valid YES; Urine Pregnancy NEGATIVE (NEGATIVE)
[2024-01-05] MEDS: Acetaminophen 325 MG TABLET 975 MG PO (13:06)
[2024-01-05] MEDS: diazePAM 2 MG TABLET PO (13:06)
== END 2024-01-05 15:14 | disposition home or self-care (01) ==
PROVIDERS: Physician Assistant Medical; Emergency Provider Emergency Medicine; PCP Family Medicine
DX: M54.50 Low back pain, unspecified (principal); Z79.899 Other long term (current) drug therapy
CPT/HCPCS: 71046; 72100; 81003; 81025; 99283

== ENCOUNTER 2024-09-10 12:36 | Outpatient (REF) | payer MEDICAID, SELFPAY ==
[2024-09-10 13:43] LABS: Hematocrit 37.8 % (37.0-47.0); Mean Corpuscular HGB Conc 31.7 g/dl (31.0-35.0); Mean Corpuscular Hemoglobin 24.6 pg (27.0-33.0); Mean Corpuscular Volume 77.6 fL (80.0-98.0); Mean Platelet Volume 10.4 fL (9.4-12.3); Platelet Count 314 X10*3/uL (160-400); Red Blood Count 4.87 X10*6/uL (4.20-5.50); Red Cell Distribution Width 14.6 % (11.0-16.0); White Blood Count 7.4 X10*3/uL (4.8-10.8)
[2024-09-10 13:53] LABS: Estimated Average Glucose 105 mg/dL; Hemoglobin A1C 107.3552 umol/L; Hemoglobin A1c % 5.3 % (<6.0); Total Hemoglobin (HGBA1C) 3146.2741 umol/L
[2024-09-10 14:31] LABS: Alanine Aminotransferase 20 U/L (0-31); Albumin Level 4.1 g/dL (3.5-5.0); Alkaline Phosphatase 67 U/L (39-117); Anion Gap 10 (12-20); Aspartate Amino Transferase 20 U/L (5-31); Bilirubin Direct < 0.2 mg/dL (0.0-0.5); Bilirubin Total 0.2 mg/dL (0.0-1.0); Blood Urea Nitrogen 12 mg/dL (9-16); Carbon Dioxide 26 mmol/L (22-29); Chloride 109 mmol/L (96-108); Cholesterol 125 mg/dL (<200); Estimated Glomerular Filt Rate > 60; Glucose Random 81 mg/dL (60-115); HDL Cholesterol 40 mg/dL (>40); LDL Cholesterol Calculated 62 mg/dL (<100); Potassium 3.7 mmol/L (3.3-5.1); Sodium 141 mmol/L (135-145); Total Protein 8.1 g/dL (6.5-8.0); Triglycerides 118 mg/dL (<150)
[2024-09-10 14:45] LABS: Vitamin D 25-OH Total 13.1 ng/mL (>30)
--- OUTSIDE RECORDS SUMMARY | 2024-09-10 14:55 | XMS_ITS | Clinical Summary ---
Author Organization [facility] ity Address [address] [place] [address] Care Team Providers Care Pearl Cutter Name Role Phone Name, Maciej DOS SANTOS Primary Care Provider [phone] Surgical History Surgery Date Site/Laterality Comments SECTION 2012 PROCEDURE: HISTORICAL DELIVERY CHOLECYSTECTOMY 2015 PROCEDURE: HISTORICAL CHOLECYSTECTOMY Family History Medical History Relation Name Comments Diabetes Maternal Grandmother Relation Name Status Comments Brother 1 Alive Brother 2 Alive Daughter Alive Father Alive Maternal Grandfather Alive Maternal Grandmother Mother Alive Paternal Grandfather Alive Paternal Grandmother Alive Sister Alive Social History Tobacco Use Types Packs/Day Years Used Date Smoking Tobacco: Former Cigarettes Smokeless Tobacco: Never Alcohol Use Standard Drinks/Week Comments No 0 (1 standard drink = 0.6 oz pur e alcohol) Comments Unknown Sex and Gender Information Value Date Recorded Sex Assigned at Not on file Legal Sex Female 4:54 AM EST Gender Identity Not on file Sexual Orientation Not on file Obstetrics History Plan of Treatment Health Maintenance Due Date Last Done Comments Hepatitis B Vaccines (1 of 3 - 19+ 3-dose series) 2015 Cervical Cancer Screening: P ap Smear 2017 COVID-19 Vaccine (1 - 2023-2 5 season) 2024 Influenza Vaccine (#1) 2024 07/03/2012 DTaP,Tdap,and Td Vaccines (3 - Td or Tdap) 01/24/2027 01/24/2017, 01/22/2013 HIB Vaccines Aged Out No longer eligi ble based on patient's age to complete this topic HPV Vaccines Aged Out No longer eligi ble based on patient's age to complete this topic Hepatitis A Vaccines Aged Out No long er eligible based on patient's age to complete this topic IPV Vaccines Aged Out No longer eligi ble based on patient's age to complete this topic MMR Vaccines Aged Out No longer eligi ble based on patient's age to complete this topic Meningococcal ACWY Vaccine Aged Out N o longer eligible based on patient's age to complete this topic Meningococcal B Vacine Aged Out No lo nger eligible based on patient's age to complete this topic Pneumococcal Vaccine: Pediatrics (0 to 5 Years) and At-Risk Patients (6 to 64 Years) Aged Out No longer eligible b ased on patient's age to complete this topic RSV Immunization Patients Under 20 months Aged Out No longer eligible b ased on patient's age to complete this topic Varicella Vaccines Aged Out No longer eligible based on patient's age to complete this topic Care Teams Pearl Cutter Relationship Specialty Start Date End Date Name, MD Maciej [address] [place] [address] PCP - General Internal Medicine 10/14/18
[2024-09-10 15:08] LABS: Thyroid Stimulating Hormone 2.03 uIU/mL (0.32-4.0)
[2024-09-11 09:00] LABS: Hepatitis A Antibody IgG REACTIVE (Nonreactive); ~Hepatitis A Antibody IgG 1.91 S/CO (0.00-0.99)
[2024-09-11 09:01] LABS: HBS Num1 7.51 mIU/mL (0-7.99); HBc Num1 0.21 S/CO (0.00-0.79); HBsAGNum1 0.42 S/CO (0.00-0.99); HIV AB/AG Nonreactive (Nonreactive); HIV Num 1 0.06 S/CO (0.00-0.99); Hepatitis B Core Antibody Nonreactive (Nonreactive); Hepatitis B Surface Antigen Negative (Negative); ~HepC Num1 0.15 S/CO (0.00-0.79); ~Hepatitis B Surface Antibody NONREACTIVE (Nonreactive); ~Hepatitis C Antibody Nonreactive (Nonreactive)
[2024-09-11 18:18] LABS: CT PCR NOT DETECTED (Not Detect.); NG PCR NOT DETECTED (Not Detect.)
[2024-09-12 14:38] LABS: RPR Rapid Plasma Reagin NON-REACTIVE (NON-REACTIVE)
== END 2024-09-10 12:37 | disposition home or self-care (01) ==
LOC: HO.HHCL 12:36
PROVIDERS: Visit Provider Family Medicine
DX: Z00.00 Encounter for general adult medical examination without abnormal findings (principal); Z68.41 Body mass index [BMI] 40.0-44.9, adult; E16.2 Hypoglycemia, unspecified; M25.551 Pain in right hip; M25.511 Pain in right shoulder; I83.813 Varicose veins of bilateral lower extremities with pain; R10.13 Epigastric pain; F41.9 Anxiety disorder, unspecified
CPT/HCPCS: 80048; 80061; 80076; 82306; 83036; 84439; 84443; 85027; 86592; 86704; 86706; 86708; 86803; 87340; 87389; 87491; 87591

== ENCOUNTER 2025-01-09 08:04 | Emergency (ER) | payer MEDICAID, SELFPAY ==
[2025-01-09 08:10] VITALS: BP 117/78; PULSE 99; RESP 16; TEMP 36.6; O2SAT 100; BMI 38.6
--- NOTE | 2025-01-09 09:47 | ED_ITS ---
HPI - General Adult General Chief complaint: Allergic Reaction Stated complaint: allergic reaction ? Time Seen by Provider: 01/09/25 09:14 Source: patient Mode of arrival: ambulatory Limitations: no limitations History of Present Illness ED Provider: Augie Rankin HPI narrative: 29 yold female with no pmh presents to the ED for allergy rash on arms and ankles/legs since last night. patient denies any pmh of allergies. patient denes any chest pain, shortness of breath, lip swelling, or tongue swelling. patient denies eating any new foods, deteregents, or cosmetics. Patietn states no fev er, chills, or, new meds Related Data Previous Rx's ?Medication ?Instructions ?Recorded amoxicillin 875 mg-potassium 1 tab PO BID pharyngitis 10 days 06/15/22 clavulanate 125 mg tablet #20 tabs nitrofurantoin 100 mg PO Q12H 7 days #13 ca ps 07/19/22 monohydrate/macrocrystals 100 mg capsule (Macrobid) phenazopyridine 100 mg tablet 100 mg PO TID 6 doses #6 tabs 07/19/22 amoxicillin 875 mg-potassium 1 tab PO BID #20 tabs 01/28 clavulanate 125 mg tablet acetaminophen 500 mg tablet 1,000 mg (2 x 500 mg) PO Q 8H PRN 01/05/24 (Tylenol Extra Strength) pain #30 tabs cyclobenzaprine 5 mg tablet 5 mg PO TID PRN muscle spa sm #14 01/05/24 tabs ibuprofen 600 mg tablet 600 mg PO Q6H PRN pain #30 t abs 01/05/24 lidocaine 5 % topical patch 1 patch topical DAILY #30 ea 01/05/24 diphenhydramine HCl 25 mg capsule 25 mg PO TID PRN all ergic reaction 01/09/25 (Benadryl) #21 caps famotidine 20 mg tablet (Pepcid) 20 mg PO BID 5 days # 10 tabs 01/09/25 prednisone 20 mg tablet 40 mg (2 x 20 mg) PO DAILY 5 days 01/09/25 #10 tabs Allergies Allergy/AdvReac Type Severity Reaction Status Date / Time No Known Allergies Allergy Verified 01/09/25 08:17 Review of Systems Review of Systems: itchy rash Yes all other systems are reviewed and are negative PMFSH Past Medical History Medical History No known health problems Social History Social History Alcohol intake: never Patient Tobacco Use Status: Current everyday Tobacco user Smoked in Last 30 Days: Yes Use of substances other than those prescribed or required for medical reasons: No Advance Directives: No Advance Directives Information Provided: Yes Do you have a plan to hurt others: No Plan Patient : No Physical Exam ED Vital Signs: Vital Signs - 24 hr 01/09/25 08:10 Temperature 98 F Pulse Rate 99 Respiratory Rate 16 Blood Pressure 117/78 Pulse Oximetry 100 Oxygen Delivery Method Room Air BMI result Body Mass Index 38.6 Const General: cooperative, healthy appearing, comfortable, no acute distress, well developed, alert, awake and Physically active Orientation/consciousness: patient oriented x3 HENMT Other: Negative lip swelling, tongue swelling, or uvula swelling Head: Yes normal to inspection, Yes No palpable skull fracture present, Yes normocephalic and Yes atraumatic Eyes General: appearance normal, both eyes and all related structures Neck Neck: Yes normal visual inspection, Yes full ROM, Yes no lymphadenopathy, Yes no meningeal signs, Yes trachea midline, Yes supple, No anterior neck swelling and No tender Chest Chest palpation & inspection: normal inspection of the chest and normal palpation of entire chest wall Resp Effort & Inspection: normal respiratory effort and able to speak in complete sentences Auscultation: clear to auscultation bilaterally Cardio Jugular venous distension: no JVD Heart sounds: S1 normal heart sound present and S2 normal heart sound present GI Inspection: Yes normal to inspection Palpation (GI): Soft to palpation, not firm, nontender, no guarding and not rig id General: Yes no CVA tenderness Back/Spine/Pelvis Back: no CVA tenderness and No back tenderness Skin Other: positive for uticaria rash on upper and lower extremities General skin exam: no rashes or lesions noted, elasticity normal and turgor normal Neuro General: patient oriented x3, gait normal, tone normal, moves all extremities, Normal light touch and pain sensation, no meningeal signs, no focal motor deficits, CN's II-XI intact bilaterally and normal sensation to monofilament Extrem Other: Positive for bilateral upper and lower extremities uticaria rash General: Yes normal to inspection, Yes full ROM and Yes capillary refill normal Psych Appearance: grossly normal, well kempt and not disheveled Medical Decision Making Medical Decision Making MDM Narrative: 29 yold female presents to the ED for itchy rash. Patient is having allergic reaction. not suspecting anyphylaxis, cyril johnsons, measles, celluliits, tick bite, or any other life threatening eitology. patietn explained worrisome signs and informed to return to the ED immdielatey. Differential Diagnosis Differential Diagnoses: The differential diagnosis associated with the presentation includes (allergies) Admission/Observation Consideration of admission/observation: Escalation of care including admission/observation considered Independent Historian Clinical information obtained from an independent historian. History obtained from or confirmed by: Other (patient) Prescription Management I considered prescription management with: Other (prednisone, benadryl) Discharge Plan Discharge Clinical Impression: Allergic reaction, Urticaria Patient Disposition: Home, Self-Care Instructions: Urticaria (ED), General Allergic Reaction (ED) Additional Instructions: Recommend follow up with PCP. You will need to follow up with PCP for allergy test. Return to the ED immediately for any shortness of breath, lip swelling, tongue swelling, worsening rash, fever, skin pealing, sensation of throat closing, or any other concerning symptoms. Prescriptions: New prednisone 20 mg tablet 40 mg PO DAILY 5 Days Qty: 10 0RF diphenhydramine HCl [Benadryl] 25 mg capsule 25 mg PO TID PRN (Reason: allergic reaction) Qty: 21 0RF famotidine [Pepcid] 20 mg tablet 20 mg PO BID 5 Days Qty: 10 0RF No Action amoxicillin-pot clavulanate 875-125 mg tablet 1 tab PO BID 10 Days Qty: 20 0RF nitrofurantoin monohyd/m-cryst [Macrobid] 100 mg capsule 100 mg PO Q12H 7 Days Qty: 13 0RF Rx Instructions: must administer with a meal/food phenazopyridine 100 mg tablet 100 mg PO TID Qty: 6 0RF ibuprofen 600 mg tablet 600 mg PO Q6H PRN (Reason: pain) Qty: 30 0RF acetaminophen [Tylenol Extra Strength] 500 mg tablet 1,000 mg PO Q8H PRN (Reason: pain) Qty: 30 0RF cyclobenzaprine 5 mg tablet 5 mg PO TID PRN (Reason: muscle spasm) Qty: 14 0RF lidocaine 5 % adhesive patch,medicated 1 patch topical DAILY Qty: 30 0RF Rx Instructions: leave on most painful area for up to 12 hrs amoxicillin-pot clavulanate 875-125 mg tablet 1 tab PO BID Qty: 20 0RF Referrals: Magalys Leslie DO [Primary Care Provider, Internal Medicine] - 2 days Referral Note: Allergic reaction. needs allergy tests Clinical Impression: Urticaria; Allergic reaction Stand Alone Forms: Work/School Release Interventions: ED Discharge Assessment Last Done: 01/09/25 10:23 Discharge Date/Time: 01/09/25 10:24 Print Language: Japanese
[2025-01-09 10:23] VITALS: BP 121/78; PULSE 85; RESP 13; TEMP 36.6; O2SAT 100
== END 2025-01-09 10:24 | disposition home or self-care (01) ==
PROVIDERS: Emergency Provider Emergency Medicine Emergency Medical Services; PCP Family Medicine
DX: L23.9 Allergic contact dermatitis, unspecified cause (principal)
CPT/HCPCS: 99283; 99284

== ENCOUNTER 2025-05-13 05:20 | Emergency (ER) | payer MEDICAID, SELFPAY ==
--- NOTE | ~2025-05-13 | US_ITS ---
EXAMINATION: US PELVIS TRANSABDOMINAL AND TRANSVAGINAL HISTORY: left lower quadrant pain COMPARISON: There are no prior studies available for comparison. TECHNIQUE: Transabdominal and endovaginal real-time 2D bloom-scale ultrasound was performed. FINDINGS: Uterus: The uterus is normal in size, measuring 8.8 x 4.1 x 5.2 cm. Myometrium has a normal echotexture. No fibroids are identified. A linear echogenic focus is seen in the lower uterine segment on the right which may represent a calcification. Endometrium: The endometrial stripe measures 6 mm in thickness. Right ovary: The right ovary measures 3.5 x 1.8 x 1.4 cm. The right ovary is normal in size and echotexture. Left ovary: The left ovary measures 2.6 x 1.0 x 1.1 cm. The left ovary is normal in size and echotexture. There are multiple prominent vessels in the left adnexa. Pelvic fluid: There is a small amount of free fluid. US/US pelvic and transvaginal IMPRESSION: Small amount of free fluid in the pelvis. Multiple prominent vessels in the left adnexa can be seen in the setting of pelvic congestion syndrome. Clinical correlation is recommended. Electronically signed by: Naveed Butts MD 05/13/2025 08:12 AM [facility]
[2025-05-13 05:25] VITALS: BP 128/75; PULSE 83; RESP 20; TEMP 36.1; O2SAT 99; BMI 35.6
[2025-05-13 05:43] LABS: MANUAL DIFF FLAG NO
[2025-05-13 05:44] LABS: Hematocrit 37.4 % (37.0-47.0); Hemoglobin 12.3 g/dl (12.0-16.0); Imm Gran Abs Auto 0.02 X10*3/uL (0.00-0.03); Imm Gran Pct Auto 0.3 % (0.0-0.4); Lymphocytes Absolute Auto 2.3 X10*3/uL (1.2-4.9); Mean Corpuscular HGB Conc 32.9 g/dl (31.0-35.0); Mean Corpuscular Hemoglobin 25.7 pg (27.0-33.0); Mean Corpuscular Volume 78.2 fL (80.0-98.0); NRBC Abs Auto 0.000 X10*3/uL (0.0-0.012); NRBC Pct Auto 0.0 /100WBC (0.0-0.2); Platelet Count 254 X10*3/uL (160-400); Red Blood Count 4.78 X10*6/uL (4.20-5.50); White Blood Count 7.2 X10*3/uL (4.8-10.8)
[2025-05-13 06:01] LABS: Alanine Aminotransferase 14 U/L (0-31); Albumin Level 4.2 g/dL (3.5-5.0); Alkaline Phosphatase 59 U/L (39-117); Anion Gap 13 (12-20); Aspartate Amino Transferase 20 U/L (5-31); Blood Urea Nitrogen 16 mg/dL (9-16); Calcium 8.5 mg/dL (8.4-10.2); Carbon Dioxide 22 mmol/L (22-29); Chloride 109 mmol/L (96-108); Creatinine Clr Calc Pharmacy 139.8; Estimated Glomerular Filt Rate > 60; Lipase 21 U/L (8-78); Potassium 3.8 mmol/L (3.3-5.1); Sodium 140 mmol/L (135-145); Total Protein 7.3 g/dL (6.5-8.0)
--- OUTSIDE RECORDS SUMMARY | 2025-05-13 06:08 | XMS_ITS | Encounter Summary ---
Author Organization [employer] Address [address] [place] [address] Care Team Providers Care Alterations Tailor Name Role Phone Magalys Leslie DO Primary Care Provider + [phone] Reason for Visit * Reason Onset Date Comments Med Refill 11/27/2024 Encounter Details Date Type Department Care Team ([facility] st Contact Info) Description 11/27/2024 Refill [facility] [address], [place] [phone] Magalys Leslie DO [address], [place] [phone] BMI 40.0-44.9, adult (CMS/HCC) Social History Tobacco Use Types Packs/Day Years Used Date Smoking Tobacco: Former Cigarettes Passive Smoke Exposure: Past Smokeless Tobacco: Never Alcohol Use Standard Drinks/Week Comments Never 0 (1 standard drink = 0.6 oz pur e alcohol) Depression Answer Date Recorded Patient Health Questionnaire-9 Score 0 09/10/2024 Patient Health Questionnaire-9 Score 0 09/10/2024 Last PHQ-9: Questionnaire Data Not on file 0 09/10/2024 Housing Stability Answer Date Recorded What is your housing situation today? I have haritha gonzalez 09/10/[address] you li ve. Do you have problems with any of the following? None of the above 09/10/2024 Food Insecurity Answer Date Recorded Within the past 12 months, y ou worried that your food would run out before you got money to buy more: Never True 09/10/2024 Within the past 12 months,th e food you bought just didn't last and you didn't have enough money to get more: Never True 11/2024 Transportation Answer Date Recorded In the past 12 months, has l ack of transportation kept you from medical appts, meetings, work or from getting things needed for daily living? No 09/10/2024 Utilities Answer Date Recorded In the past 12 months, has t he electric, gas, oil or water company threatened to shut off services in your home? No 09/10/2024 Depression Answer Date Recorded Patient Health Questionnaire-2 Score 0 09/10/2024 Internet Access Answer Date Recorded Internet Access Q1 Yes 09/10/2024 Internet Access Q2 Not on file 09/10/2024 Comments No Sex and Gender Information Value Date Recorded Sex Assigned at Female 05/08/2022 10:14 AM EDT Legal Sex Female 10:14 AM EDT Gender Identity Female 05/08/2022 10:14 AM EDT Sexual Orientation Don't know 05/08/2022 10 :14 AM EDT documented as of this encounter Miscellaneous Notes * Telephone Encounter - Magalys Leslie DO - 11/27/2024 4:53 PM EDT Dose increased. New rx sent. documented in this encounter Plan of Treatment Not on file documented as of this encounter Visit Diagnoses Diagnosis BMI 40.0-44.9, adult (CMS/HCC) (HCC) documented in this encounter Additional Health Concerns Assessment Noted Time PHQ-9 Depression Total Score: 0 09/11/19 25 11:15 AM EST documented as of this encounter Care Teams Alterations Tailor Relationship Specialty Start Date End Date Magalys Leslie DO [address] [place] [id number] PCP - General Family Medicine 04/04/21 documented as of this encounter
--- OUTSIDE RECORDS SUMMARY | 2025-05-13 06:08 | XMS_ITS | Clinical Summary ---
Author Organization [employer] Address [address] [place] [address] Care Team Providers Care Oil Furnace Installer Name Role Phone Magalys Leslie Primary Care Provider Allergies No known active allergies Medications lidocaine (Lidoderm) 5 % patch APPLY 1 PATCH TOPICALLY DAILY LEAVE ON MOST PAINFUL AREA FOR UP TO 12 HRS.KEEP OFF FOR 12 HRS 30 patch 3 4 Active UltiCare Alcohol Swabs 70 % pads TEST 2 TIMES DAILY. 100 each 11 4 Active FREESTYLE LITE test strip USE INSTRUCTED 100 strip 1 5 Active FreeStyle lancets USE TO TEST 2 TIMES DAILY 100 each 1 5 Active Blood Glucose Monitoring Suppl (FreeStyle Lite) w/Device kit USE DIRECTED 1 kit 5 Active omeprazole (PriLOSEC) [address] capsule Take 1 capsule (20 mg) by mouth before breakfast and before evening meal. Do not crush or chew. 180 capsule 3 5 09/11/19 26 Active acetaminophen (Tylenol 8 Hour) 650 MG ER tabletIndicatio ns:Muscle spasm of back Take 1 tablet (650 mg) by mouth every 8 (eight) hours if needed for mild pain. Do not crush, chew, or split. 60 tablet 3 5 09/11/19 26 Active methocarbamol (Robaxin) 750 MG tablet Take 1 tablet (750 mg) by mouth if needed in the morning, at noon, and at bedtime for muscle spasms. 60 tablet 3 5 09/11/19 26 Active Tirzepatide-Bradley ght Management (Zepbound) 2.5 MG/0.5ML solution auto-injector Inject 0.5 mL (2.5 mg) under the skin 1 (one) time per week. 2 mL 3 5 Active naproxen (Naprosyn) 500 MG tablet Take 1 tablet (500 mg) by mouth if needed in the morning and at bedtime for mild pain. 30 tablet 1 5 09/11/19 Active ibuprofen 600 MG tabletIndicatio ns:Muscle spasm of back TAKE 1 TABLET BY MOUTH EVERY 8 (EIGHT) HOURS NEEDED FOR MILD PAIN OR MODERATE PAIN FOR UP TO 10 DAYS 30 tablet 5 Active Diclofenac Sodium 1 % gel APPLY 2 G TOPICALLY IF NEEDED IN THE MORNING, AT NOON, IN THE EVENING, AND AT BEDTIME (PAIN). 100 g 3 Active docusate sodium (Colace) 100 MG capsule TAKE 1 CAPSULE (100 MG) BY MOUTH IN THE MORNING AND AT BEDTIME NEEDED FOR CONSTIPATION 180 capsule 3 5 Active polycarbophil (Fibercon) 625 MG tablet Take 1 tablet (625 mg) by mouth 2 times daily. 180 tablet 3 5 03/03/20 Active phentermine 37.5 MG capsule Take 1 capsule (37.5 mg) by mouth before breakfast. 30 capsule 2 5 06/01/20 25 Active escitalopram (Lexapro) 10 MG tablet Take 1 tablet (10 mg) by mouth Once per day. 30 tablet 2 5 06/01/20 25 Active esomeprazole (NexIUM) [address] capsule Take 1 capsule (20 mg) by mouth before breakfast and before evening meal. Do not open capsule. 180 capsule 3 5 03/03/20 Active topiramate (Topamax) 25 MG tablet Take 1 tablet (25 mg) by mouth at bedtime. 30 tablet 2 5 03/03/20 Active Active Problems Problem Noted Date Diagnosed Date Chronic gastroesophageal reflux disease 09/11/19 25 Anxiety 01/26/2023 History of tobacco use 01/26/2023 BMI 38.0-38.9,adult 09/20/2022 History of COVID-19 02/23/2022 Overview (09/20/2022): Problem added by Discern Expert Resolved Problems Problem Noted Date Diagnosed Date Resolved Date Muscle spasm of back 01/09/2024 025 Encounters Date Type Department Care Team Description 05/13/2025 Orders Only GENERIC EXTERNAL DATA DEPARTMENT Provider, Generic External Data 03/03/2025 9:00 AM EDT Office Visit [facility] [address] [place] [phone] Magalys Leslie DO Anxiety (Primary Dx); Chronic GERD; Class 2 obesity without serious comorbidity with body mass index (BMI) of 38.0 to 38.9 in adult, unspecified obesity type; Drug-induced constipation; Healthcare maintenance; Dietary counseling; Exercise counseling 03/03/2025 Travel 03/02/2025 Telephone [facility] [address] [place] [address] [phone] Magalys Leslie DO Chart Prep 02/28/2025 Refill [facility] [address] [place] [address] [phone] Omega Pickens MD BMI 40.0-44.9, adult ([facility]) 02/24/2025 Telephone [facility] [address] [place] [address] [phone] Magalys Leslie DO Recall Appointment 02/24/2025 Travel from Last 3 Months Immunizations Immunization Administration Dates Next Due Influenza injectable quadriv alent preservative free 07/15/2022,06/09/2021,04/23/2019 Influenza, IIV3, injectable 07/03/2012 Tdap 04/08/2019, 7,01/22/2013,2011 Social History Tobacco Use Types Packs/Day Years Used Date Smoking Tobacco: Former Cigarettes Passive Smoke Exposure: Past Smokeless Tobacco: Never Tobacco Cessation:Counseling Given: Not Answered Alcohol Use Standard Drinks/Week Comments Never 0 [...] Don't know 05/08/2022 10 :14 AM EDT Last Filed Vital Signs Vital Sign Reading Time Taken Comments Blood Pressure 128/78 03/03/2025 9:06 AM EDT Pulse 92 03/03/2025 9:06 AM EDT Temperature 37.1 C (98.7 F) 03/03/2025 9:06 AM EDT Respiratory Rate 21 03/03/2025 9:06 AM EDT Oxygen Saturation 98% 03/03/2025 9:06 AM EDT Inhaled Oxygen Concentration - - Weight 104 kg (230 lb) 03/03/2025 9:06 AM EDT Height 165.1 cm (5' 5 ) 03/03/2025 9:06 AM EDT Body Mass Index 38.27 03/03/2025 9:06 AM EDT Plan of Treatment Health Maintenance Due Date Last Done Comments Family Planning (PISQ) 2011 HPV Vaccines (1 - 3-dose series) 2011 Hepatitis B Vaccines (1 of 3 - 19+ 3-dose series) 2015 COVID-19 Vaccine ( - 2024- season) 2025 08/30/2021, 08/08/2021 Influenza Vaccine (#1) 2025 , 06/09/2021, 04/23/2019, Additional history exists Depression Screening 09/10/2025 09/10/2024, 09/11/19 SDOH Screening 09/10/2025 09/10/2024 Pap Smear 09/20/2025 09/20/2022, 09/20/2022 Alcohol/Substance Use Screening 03/03/2026 03/03/2025 Disability Screening 03/03/2026 03/03/2025 Tobacco Screening 03/03/2026 03/03/2025 DTaP/Tdap/Td Vaccines (5 - Td or Tdap) 04/08/2029 04/08/2019, 01/24/2017, 01/22/2013, Additional history exists Lipid Panel 09/10/2029 09/10/2024, 01/07, 06/09/2021 Zoster Vaccines (1 of 2) 2046 RSV Patients and Patients Aged 60 years or older (1 - 1-dose 75+ series) 2071 HIV Screening Completed 09/10/2024, 01/07, 06/09/2021 Hepatitis C Screening Completed 09/10/2024 , 01/26/2023, 06/09/2021 HIB Vaccines Aged Out No longer eligi ble based on patient's age to complete this topic Hepatitis A Vaccines Aged Out No long er eligible based on patient's age to complete this topic IPV Vaccines Aged Out No longer eligi ble based on patient's age to complete this topic Meningococcal B Vaccine Aged Out No l onger eligible based on patient's age to complete this topic Meningococcal Vaccine Aged Out No kimberly sarah eligible based on patient's age to complete this topic Pneumococcal Vaccine: Pediatrics (0 to 5 Years) and At-Risk Patients (6 to 49) Years Aged Out No longer eligible based on patient's age to complete this topic RSV under 20 months Aged Out No longe r eligible based on patient's age to complete this topic Rotavirus Vaccines Aged Out No longer eligible based on patient's age to complete this topic Procedures Procedure Name Priority Date/Time Associated Diagnosis Comments LIPASE Routine 05/13/2025 5:39 AM EST COMPREHENSIVE METABOLIC PANEL Routine 05/13/2025 5:39 AM EST CBC WITH AUTO DIFFERENTIAL Routine 05/13/2025 5:39 AM EST HEPATITIS C AB W/REFL TO HCV RNA, QN, PCR Routine 09/10/2024 12:41 PM EST Chronic GERD Healthcare maintenance BMI 40.0-44.9, adult (CMS/HCC) HIV 1/2 ANTIGEN/ANTIBODY, FOURTH GENERATION W/RFL Routine 09/10/2024 12:41 PM EST Chronic GERD Healthcare maintenance BMI 40.0-44.9, adult (CMS/HCC) LIPID PANEL, STANDARD Routine 09/10/2024 12:41 PM EST Chronic GERD Healthcare maintenance BMI 40.0-44.9, adult (CMS/HCC) THINPREP IMAGING PAP REFLEX HPV DNA Routine 09/20/2022 4:28 PM EDT Pap smear for cervical cancer screening from Last 3 Months or Most Recently Relevant to Health Maintenance Results * (ABNORMAL) CBC auto differential (05/13/2025 5:39 AM EST) White Blood Count 7.2 4.8 - 10.8 X10*3/uL [facility] Red Blood Count 4.78 4.20 - 5.50 X10*6/uL [facility] Hemoglobin 12.3 12.0 - 16.0 g/dl [facility] Hematocrit 37.4 37.0 - 47.0 % [facility] Mean Corpuscular Volume 78.2(L) 80.0 - 98.0 fL [facility] Mean Corpuscular Hemoglobin 25.7(L) 27.0 - 33.0 pg [facility] Mean Corpuscular HGB Conc 32.9 31.0 - 35.0 g/dl [facility] Red Cell Distribution Width 13.6 11.0 - 16.0 % [facility] Platelet Count 254 160 - 400 X10*3/uL [facility] Mean Platelet Volume 9.9 9.4 - 12.3 fL [facility] Neutrophils Percent Auto 55.5 45 - 73 % [facility] Imm Gran Pct Auto 0.3 0.0 - 0.4 % [facility] Lymphocytes Percent Auto 31.5 20 - 40 % [facility] Monocytes Percent Auto 8.1 2 - 11 % [facility] Eosinophils Percent Auto 3.9 0 - 4 % [facility] Basophils Percent Auto 0.7 0 - 2 % [facility] NRBC Pct Auto 0.0 0.0 - 0.2 /100WBC [facility] Neutrophils Absolute Auto 4.0 2.0 - 8.3 x10*3/uL [facility] Imm Gran Abs Auto 0.02 0.00 - 0.03 X10*3/uL [facility] Lymphocytes Absolute Auto 2.3 1.2 - 4.9 X10*3/uL [facility] Monocytes Absolute Auto 0.6 0.1 - 1.2 X10*3/uL [facility] Eosinophils Absolute Auto 0.3 0.0 - 0.4 X10*3/uL [facility] Basophils Absolute Auto 0.1 0.0 - 0.2 X10*3/uL [facility] NRBC Abs Auto 0.000 0.0 - 0.012 X10*3/uL [facility] 05/13/2025 5:39 AM EST 05/13/2025 5:42 AM EST us Generic External Data Provider LAB BLOOD ORDERAB LES Final Result [facility] [address] [place] [address] [phone] * Lipase (05/13/2025 5:39 AM EST) Lipase 21 8 - 78 U/L [facility] 05/13/2025 5:39 AM EST 05/13/2025 5:42 AM EST us Generic External Data Provider LAB BLOOD ORDERAB LES Final Result [facility] [address] [place] [phone] * (ABNORMAL) Comprehensive Metabolic Panel (05/13/2025 5:39 AM EST) Sodium 140 135 - 145 mmol/L [facility] Potassium 3.8 3.3 - 5.1 mmol/L [facility] Chloride 109(H) 96 - 108 mmol/L [facility] Carbon Dioxide 22 22 - 29 mmol/L [facility] Anion Gap 13 12 - 20 [facility] Urea Nitrogen (BUN) 16 9 - 16 mg/dL [facility] Creatinine, Serum 0.69 0.5 - 1.4 mg/dL [facility] Creatinine Clr Calc Pharmacy 139.8 [facility] Comment:Provided height and weight: 165.1 cm,97 kg.eGFR (calculated from the MDRD study equation) and eCrCl(calculated from the Cockcroft-Gault equation) are based ondifferent parameters and may not yield comparable results.If eCrCl result is absurd, please check patient'sheight/weight. Estimated Glomerular Filt Rate >60 [facility] Comment:Chronic Kidney Disea se: Estimated GFR < 60 mL/min/1.83h3Pjcazt Kidney Disease: Estimated GFR < 15 mL/min/1.73m2 Glucose 105 60 - 115 mg/dL [facility] Calcium 8.5 8.4 - 10.2 mg/dL [facility] Bilirubin, Total 0.2 0.0 - 1.0 mg/dL [facility] Aspartate Amino Transferase 20 5 - 31 U/L [facility] Alanine Aminotransferase 14 0 - 31 U/L [facility] Total Protein 7.3 6.5 - 8.0 g/dL [facility] Albumin Level 4.2 3.5 - 5.0 g/dL [facility] Alkaline Phosphatase 59 39 - 117 U/L [facility] 05/13/2025 5:39 AM EST 05/13/2025 5:42 AM EST us Generic External Data Provider LAB BLOOD ORDERAB LES Final Result Performing Organization Address [facility] Co de Phone Number [facility] [address] [place] [phone] * Hepatitis C Antibody with Reflex to HCV, RNA, Quantitative, Real-Time PCR (09/10/2024 12:41 PM EST) Hepatitis C Antibody Nonreactive Nonreactive [facility] Comment:Antibodies to HCV no t detected; does not exclude early acuteHCV infection. Blood Venous blood specimen / Unknown 09/10/2024 12:41 PM EST 09/10/2024 1:37 PM EST us Magalys Leslie DO LAB BLOOD ORDERABLES Final R esult Performing Organization Address [facility] Co de Phone Number [facility] [address] [place] [phone] * HIV-1/2 Antigen and Antibodies, Fourth Generation, with Reflexes (09/10/2024 12:41 PM EST) HIV AB/AG Nonreactive Nonreactive [facility] Comment:HIV-1 p24 Ag and/or HIV-1/HIV-2 Ab not detected.A test result that is nonreactive does not exclude thepossibility of exposure to or infection with HIV-1 and/orHIV-2. Nonreactive results in this assay for individualswith prior exposure to HIV-1 and/or HIV-2 may be due toantigen and antibody levels that are below the limit ofdetection of this assay.The [employer] HIV Ag/Ab Combo assay result andsupplemental assay results should be interpreted inconjunction with the patient's clinical presentation,history and other laboratory results. If the results areinconsistent with clinical evidence, additional testing issuggested to confirm the result. Blood Venous blood specimen / Unknown 09/10/2024 12:41 PM EST 09/10/2024 1:37 PM EST Magalys Leslie DO LAB BLOOD ORDERABLES Final R esult Performing Organization Address [facility] Co de Phone Number [facility] [address] [place] [phone] * (ABNORMAL) Lipid Panel, Standard (09/10/2024 12:41 PM EST) Triglycerides 118 <150 mg/dL [facility] Comment:Desirable Triglyceri de: less than 150 mg/dLBorderline High Triglyceride 150-199 mg/dLHigh Triglyceride: 200-499 mg/dLVery High Triglyceride: greater than or equal to 5OO mg/dL Cholesterol 125 <200 mg/dL [facility] Comment:Desirable Cholestero l: less than 200 mg/dLBorderline High Cholesterol: 200-239 mg/dLHigh Cholesterol: greater than 239 mg/dL LDL Cholesterol Calculated 62 <100 mg/dL [facility] Comment:Desirable LDL: less than 100 mg/dLNear Optimal/Above Optimal LDL: 110- 129 mg/dLBorderline High LDL: 130-159 mg/dLHigh LDL: 160-189 mg/dLVery High LDL: greater than or equal to 190 mg/dL HDL Cholesterol 40(L) >40 mg/dL [facility] Comment:Desirable HDL: great er than 40 mg/dL Note: This HDL assay may give artificially low results in patients with liver disease. Blood Venous blood specimen / Unknown 09/10/2024 12:41 PM EST 09/10/2024 1:37 PM EST Magalys Leslie DO LAB BLOOD ORDERABLES Final R esult Performing Organization Address City/[facility]/ZIP Co de Phone Number [facility] [address] [place] [address] [phone] * ThinPrep Pap with Reflex to HPV DNA (09/20/2022 4:28 PM EDT) Clinical Information: None given [facility] LMP: NONE GIVEN [employer] [place] [facility] Prev. PAP: NONE GIVEN [employer] [place] [facility] Prev. BX: NONE GIVEN [employer] [place] [employer] [facility] SOURCE: None given [email or web address] Statement Of Adequacy: [employer] [place] [facility] Comment: Satisfactory for evaluation. Endocervical/transformation zone component present. Interpretation/ Result: Negative for intraepithelial lesion or malignancy. [email or web address] Infection Shift in vaginal arina suggestive of bacterial vaginosis. [employer] [place] [facility] Cytotechnologis t: [employer] Comment: TerriXM, CT(ASCP) CT screening location: [place] [address] (Always Message) [employer] Comment: EXPLANATORY NOTE: The Pap is a screening test for cervical cancer. It is not a diagnostic test and is subject to false negative and false positive results. It is most reliable when a satisfactory sample, regularly obtained, is submitted with relevant clinical findings and history, and when the Pap result is evaluated along with historic and current clinical information. Cytology specimen container (physical object) 09/20/2022 4:28 PM EDT 09/21/2022 5:01 AM EDT us Magalys Leslie DO LAB CYTOLOGY ORDERABLES Savita l Result [facility] [address] [place] [address], [place] [address] [employer] [place] [facility] [address] [place] [address] from Last 3 Months or Most Recently Relevant to Health Maintenance Insurance [facility] C3 Care Teams Oil Furnace Installer Relationship Specialty Start Date End Date Magalys Leslie DO [address] [place] [address] PCP - General Family Medicine 04/04/21
--- OUTSIDE RECORDS SUMMARY | 2025-05-13 06:08 | XMS_ITS | Encounter Summary ---
Author Organization [employer] Address [address] [place] [address] Care Team Providers Care Magnet Placer Name Role Phone CedricMagalys field Primary Care Provider + [phone] Encounter Details Date Type Department Care Team ([facility] st Contact Info) Description 09/22/2022 Abstract [facility] [address] [place] [address] Renate Arreguin RN [address], [place] [phone] Social History Tobacco Use Types Packs/Day Years [...] Don't know 05/08/2022 10 :14 AM EDT COVID-19 Exposure Response Date Recorded In the last 10 days, have yo u been in contact with someone who was confirmed or suspected to have Coronavirus/COVID-19? No / Unsure 09/20/2022 2:35 PM EDT documented as of this encounter Plan of Treatment Not on file documented as of this encounter Procedures Procedure Name Priority Date/Time Associated Diagnosis Comments PAP/HPV Routine 09/20/2022 documented in this encounter Results * Pap Smear (09/20/2022) Pap smear NIL us Historical Provider HEALTH MAINTENANCE Final Result documented in this encounter Visit Diagnoses Not on filedocumented in this encounter Care Teams Magnet Placer Relationship Specialty Start Date End Date Magalys Leslie DO [address] [place] [phone] PCP - General Family Medicine 04/04/21 documented as of this encounter
--- OUTSIDE RECORDS SUMMARY | 2025-05-13 06:08 | XMS_ITS | Clinical Summary ---
Author Organization [facility] ity Address [address] [place] [address] Care Team Providers Care Char Filter Tank Tender Head Name Role Phone Name, Maciej DOS SANTOS Primary Care Provider [phone] Surgical History Surgery Date Site/Laterality Comments SECTION [...] Cervical Cancer Screening: P ap Smear 2017 HPV Vaccines (1 - 3-dose SCD M series) 2023 Depression Screening 07/09/2024 COVID-19 Vaccine ( - 2023-2 5 season) 2025 Influenza Vaccine (#1) 2025 07/03/2012 DTaP,Tdap,and Td Vaccines (3 - Td or Tdap) 01/24/2027 01/24/2017, 01/22/2013 RSV Immunization Adult Patients (1 - 1-dose 75+ series) 2071 HIB Vaccines Aged Out No longer eligi [...] 5 Years) and At-Risk Patients (6 to 49 Years) Aged Out No longer eligible b ased on patient's age to complete this topic RSV Immunization Patients Under 20 months Aged Out No longer eligible b ased on patient's age to complete this topic Varicella Vaccines Aged Out No longer eligible based on patient's age to complete this topic Care Teams Char Filter Tank Tender Head Relationship Specialty Start Date End Date Name, MD Maciej [address] [place], [place] PCP - General Internal Medicine 10/14/18
--- OUTSIDE RECORDS SUMMARY | 2025-05-13 06:08 | XMS_ITS | Encounter Summary ---
Author Organization [employer] Address [address] [place] [address] Care Team Providers Care Engine Lathe Tender Name Role Phone Magalys Leslie DO Primary Care Provider + [phone] Reason for Visit * Reason Comments Med Refill Encounter Details Date Type Department Care Team ([facility] st Contact Info) Description 08/09/2023 Refill [facility] [address] [place] [address] Magalys Leslie DO [address] [place] [address] Social History Tobacco Use Types Packs/Day Years Used Date Smoking Tobacco: Former Cigarettes Passive Smoke Exposure: Past Smokeless Tobacco: Never Alcohol Use Standard Drinks/Week Comments Never 0 (1 standard drink = 0.6 oz pur e alcohol) Housing Stability Answer Date Recorded What is your housing situation today? I have haritha gonzalez 05/02/[address] you li ve. Do you have problems with any of the following? None of the above 05/02/2023 Food Insecurity Answer Date Recorded Within the past 12 months, y ou worried that your food would run out before you got money to buy more: Never True 05/02/2023 Within the past 12 months,th e food you bought just didn't last and you didn't have enough money to get more: Never True Transportation Answer Date Recorded In the past 12 months, has l ack of transportation kept you from medical appts, meetings, work or from getting things needed for daily living? No 05/02/2023 Utilities Answer Date Recorded In the past 12 months, has t he electric, gas, oil or water company threatened to shut off services in your home? No 05/02/2023 Comments Unknown Sex and Gender Information Value Date Recorded Sex Assigned at Female 05/08/2022 10:14 AM EDT Legal Sex Female 10:14 AM EDT Gender Identity Female 05/08/2022 10:14 AM EDT Sexual Orientation Don't know 05/08/2022 10 :14 AM EDT documented as of this encounter Plan of Treatment Not on file documented as of this encounter Visit Diagnoses Not on filedocumented in this encounter Care Teams Engine Lathe Tender Relationship Specialty Start Date End Date Magalys Leslie DO [address] [place] [address] PCP - General Family Medicine 04/04/21 documented as of this encounter
--- OUTSIDE RECORDS SUMMARY | 2025-05-13 06:08 | XMS_ITS | Encounter Summary ---
Author Organization [employer] Address [address] [place] [address] Care Team Providers Care Carbon Paper Machine Operator Name Role Phone Magalys Leslie DO Primary Care Provider + [phone] Reason for Visit * Reason Comments Med Refill Encounter Details Date Type Department Care Team ([facility] st Contact Info) Description 08/09/2023 Refill [facility] [address] [place] [address] Magalys Leslie DO [address] [place] [address] Social History Tobacco Use Types Packs/Day Years [...] on filedocumented in this encounter Care Teams Carbon Paper Machine Operator Relationship Specialty Start Date End Date Magalys Leslie DO [address] [place] [address] PCP - General Family Medicine 04/04/21 documented as of this encounter
--- OUTSIDE RECORDS SUMMARY | 2025-05-13 06:08 | XMS_ITS | Encounter Summary ---
Author Organization [employer] Address [address] [facility] [address] [place] [address] Care Team Providers Care Back Wedger Name Role Phone EliezerMagalys roque Primary Care Provider [phone] Encounter Details Date Type Department Care Team ([facility] Contact Info) Description 05/13/2025 Orders Only GENERIC EXTERNAL DATA DEPARTMENT Provider, Generic External Data Social History Tobacco Use Types Packs/Day Years [...] Procedure Name Priority Date/Time Associated Diagnosis Comments CBC WITH AUTO DIFFERENTIAL Routine 05/13/2025 5:39 AM EST LIPASE Routine 05/13/2025 5:39 AM EST COMPREHENSIVE METABOLIC PANEL Routine 05/13/2025 5:39 AM EST documented in this encounter Results * Lipase (05/13/2025 5:39 AM EST) Lipase 21 8 - 78 U/L [facility] 05/13/2025 5:39 AM EST 05/13/2025 5:42 AM EST us Generic External Data Provider LAB BLOOD ORDERAB LES Final Result [facility] [address] [place] [address] [phone] * (ABNORMAL) Comprehensive Metabolic Panel (05/13/2025 5:39 AM EST) Sodium 140 135 - 145 mmol/L [facility] Potassium 3.8 3.3 - 5.1 mmol/L [facility] Chloride 109(H) 96 - 108 mmol/L [facility] Carbon Dioxide 22 22 - 29 mmol/L [facility] Anion Gap 13 12 - 20 [facility] Urea Nitrogen (BUN) 16 9 - 16 mg/dL [facility] Creatinine, Serum 0.69 0.5 - 1.4 mg/dL [facility] Creatinine Clr Calc Pharmacy 139.8 [facility] Comment:Provided height and weight: 165.1 cm,97 kg.eGFR (calculated from the MDRD study equation) and eCrCl(calculated from the Cockcroft-Gault equation) are based ondifferent parameters and may not yield comparable results.If eCrCl result is absurd, please check patient'sheight/weight. Estimated Glomerular Filt Rate >60 [facility] Comment:Chronic Kidney Disea se: Estimated GFR < 60 mL/min/1.90b1Ysqcnk Kidney Disease: Estimated GFR < 15 mL/min/1.73m2 Glucose 105 60 - 115 mg/dL [facility] Calcium 8.5 8.4 - 10.2 mg/dL [facility] Bilirubin, Total 0.2 0.0 - 1.0 mg/dL [facility] Aspartate Amino Transferase 20 5 - 31 U/L [facility] Alanine Aminotransferase 14 0 - 31 U/L [facility] Total Protein 7.3 6.5 - 8.0 g/dL [facility] Albumin Level 4.2 3.5 - 5.0 g/dL [facility] Alkaline Phosphatase 59 39 - 117 U/L [facility] 05/13/2025 5:39 AM EST 05/13/2025 5:42 AM EST us Generic External Data Provider LAB BLOOD ORDERAB LES Final Result [facility] [address] [place] [phone] * (ABNORMAL) CBC auto differential (05/13/2025 5:39 AM EST) White Blood Count 7.2 4.8 - 10.8 X10*3/uL [facility] Red Blood Count 4.78 4.20 - 5.50 X10*6/uL [facility] Hemoglobin 12.3 12.0 - 16.0 g/dl [facility] Hematocrit 37.4 37.0 - 47.0 % [facility] Mean Corpuscular Volume 78.2(L) 80.0 - 98.0 fL [facility] Mean Corpuscular Hemoglobin 25.7(L) 27.0 - 33.0 pg [facility] Mean Corpuscular HGB Conc 32.9 31.0 - 35.0 g/dl [facility] Red Cell Distribution Width 13.6 11.0 - 16.0 % [facility] Platelet Count 254 160 - 400 X10*3/uL [facility] Mean Platelet Volume 9.9 9.4 - 12.3 fL [facility] Neutrophils Percent Auto 55.5 45 - 73 % [facility] Imm Gran Pct Auto 0.3 0.0 - 0.4 % [facility] Lymphocytes Percent Auto 31.5 20 - 40 % [facility] Monocytes Percent Auto 8.1 2 - 11 % [facility] Eosinophils Percent Auto 3.9 0 - 4 % [facility] Basophils Percent Auto 0.7 0 - 2 % [facility] NRBC Pct Auto 0.0 0.0 - 0.2 /100WBC [facility] Neutrophils Absolute Auto 4.0 2.0 - 8.3 x10*3/uL [facility] Imm Gran Abs Auto 0.02 0.00 - 0.03 X10*3/uL [facility] Lymphocytes Absolute Auto 2.3 1.2 - 4.9 X10*3/uL [facility] Monocytes Absolute Auto 0.6 0.1 - 1.2 X10*3/uL [facility] Eosinophils Absolute Auto 0.3 0.0 - 0.4 X10*3/uL [facility] Basophils Absolute Auto 0.1 0.0 - 0.2 X10*3/uL [facility] NRBC Abs Auto 0.000 0.0 - 0.012 X10*3/uL [facility] 05/13/2025 5:39 AM EST 05/13/2025 5:42 AM EST us Generic External Data Provider LAB BLOOD ORDERAB LES Final Result [facility] [address] [place] [phone] documented in this encounter Visit Diagnoses Not on filedocumented in this encounter Additional Health Concerns Assessment Noted Time PHQ-9 Depression Total Score: 0 09/11/19 25 11:15 AM EST documented as of this encounter Care Teams Back Wedger Relationship Specialty Start Date End Date Magalys Leslie DO [address] [place] [phone] PCP - General Family Medicine 04/04/21 documented as of this encounter
--- OUTSIDE RECORDS SUMMARY | 2025-05-13 06:08 | XMS_ITS | Encounter Summary ---
Author Organization [employer] Address [address] [facility] [place] [address] Care Team Providers Care Gyro Compass Tester Name Role Phone Magalys Leslie DO Primary Care Provider [phone] Reason for Visit * Reason Comments Med Refill Encounter Details Date Type Department Care Team ([facility] st Contact Info) Description 11/27/[address] [facility] [address] [place], [place] [phone] Magalys Leslie DO [address] [place], [place] [phone] BMI 40.0-44.9, adult (CMS/HCC) Social History Tobacco [...] documented as of this encounter Care Teams Gyro Compass Tester Relationship Specialty Start Date End Date Magalys Leslie DO [address] [place] [phone] PCP - General Family Medicine 04/04/21 documented as of this encounter
--- NOTE | 2025-05-13 06:41 | ED_ITS ---
HPI - Abdominal Pain General Chief Complaint: Abdominal Pain Stated Complaint: left side cramps Time Seen by Provider: 05/13/25 06:13 Source: patient Mode of arrival: ambulatory Limitations: no limitations History of Present Illness ED Provider: HPI narrative: 29-year-old woman otherwise healthy, presenting with left lower quadrant pain, took acetaminophen 3 hours prior has not been working, pain is consistent left lower quadrant without fevers chills nausea and vomiting no dysuria, no hematuria. Related Data Previous Rx's ?Medication ?Instructions ?Recorded amoxicillin 875 mg-potassium 1 tab PO BID pharyngitis 10 days 06/15/22 clavulanate 125 mg tablet #20 tabs nitrofurantoin 100 mg PO Q12H 7 days #13 ca ps 07/19/22 monohydrate/macrocrystals 100 mg capsule (Macrobid) phenazopyridine 100 mg tablet 100 mg PO TID 6 doses #6 tabs 07/19/22 amoxicillin 875 mg-potassium 1 tab PO BID #20 tabs 01/28 clavulanate 125 mg tablet acetaminophen 500 mg tablet 1,000 mg (2 x 500 mg) PO Q 8H PRN 01/05/24 (Tylenol Extra Strength) pain #30 tabs cyclobenzaprine 5 mg tablet 5 mg PO TID PRN muscle spa sm #14 01/05/24 tabs ibuprofen 600 mg tablet 600 mg PO Q6H PRN pain #30 t abs 01/05/24 lidocaine 5 % topical patch 1 patch topical DAILY #30 ea 01/05/24 diphenhydramine HCl 25 mg capsule 25 mg PO TID PRN all ergic reaction 01/09/25 (Benadryl) #21 caps famotidine 20 mg tablet (Pepcid) 20 mg PO BID 5 days # 10 tabs 01/09/25 prednisone 20 mg tablet 40 mg (2 x 20 mg) PO DAILY 5 days 01/09/25 #10 tabs Allergies Allergy/AdvReac Type Severity Reaction Status Date / Time No Known Allergies Allergy Verified 05/13/25 05:26 Review of Systems Constitutional: Reports as per [facility] Past Medical History Medical History No known health problems Social History Social History Alcohol intake: never Patient Tobacco Use Status: Current everyday Tobacco user Smoked in Last 30 Days: Yes Use of substances other than those prescribed or required for medical reasons: No Advance Directives: No Advance Directives Information Provided: Yes Do you have a plan to hurt others: No Plan Physical Exam ED Exam Exam: General: ?Appears of stated age ? ?Resp: ?No wheezing rales rhonchi no stridor moving air well ? Abd: ?Bowel sounds are present, left lower quadrant tenderness no voluntary guarding no suprapubic or right lower quadrant tenderness ? ?MSK: FROM, strength 5/5 all extremities ? Skin: Warm, dry, intact, ? ?Neuro: ?Alert and oriented x3, moving upper and lower extremities symmetrically, no obvious facial asymmetry noted, cranial nerves 2-12 intact Vital Signs: Vital Signs - 24 hr 05/13/25 05:25 05/13/25 07:06 Temperature 97.0 F 97.6 F Pulse Rate 83 74 Respiratory Rate 20 15 Blood Pressure 128/75 144/94 H Pulse Oximetry 99 100 Oxygen Delivery Method Room Air Room Air BMI result Body Mass Index 35.6 Medical Decision Making Medical Decision Making [facility] Narrative: 6:43 AM 05/13/2025 (Dr. Guillermo Pink): We will evaluate for ovarian pathology with the ultrasound, otherwise well-appearing, did not feel further imaging such as CT is indicated to evaluate for appendicitis she has had no suprapubic or right lower quadrant tenderness, physical exam with isolated left lower quadrant discomfort and tenderness on exam 8:24 AM 05/13/2025 (Dr. Guillermo Pink): Patient's pain improved with Toradol, ultrasound without ovarian pathology, radiologist considers pelvic congestion which we will need to be made by radiation oncology nurse on outpatient basis Differential Diagnosis Differential Diagnoses: The differential diagnosis associated with the presentation includes (Mittelschmerz, ovarian cysts, tubo-ovarian abscess, ovarian torsion, renal colic) Admission/Observation Consideration of admission/observation: Escalation of care including admission/observation considered Lab Data [facility] Lab Attestation statement: I reviewed the patient's lab results. 05/13/25 05:39 05/13/25 05:39 Labs: Lab Results 05/13/25 Range/Units 05:39 WBC 7.2 (4.8-10.8) X10*3/uL RBC 4.78 (4.20-5.50) X10*6/uL Hgb 12.3 (12.0-16.0) g/dl Hct 37.4 (37.0-47.0) % MCV 78.2 L (80.0-98.0) fL MCH 25.7 L (27.0-33.0) pg MCHC 32.9 (31.0-35.0) g/dl RDW 13.6 (11.0-16.0) % Plt Count 254 (160-400) X10*3/uL MPV 9.9 (9.4-12.3) fL Immature Gran % (Auto) 0.3 (0.0-0.4) % Neut % (Auto) 55.5 (45-73) % Lymph % (Auto) 31.5 (20-40) % Irion % (Auto) 8.1 (2-11) % Eos % (Auto) 3.9 (0-4) % Baso % (Auto) 0.7 (0-2) % Lymph # (Auto) 2.3 (1.2-4.9) X10*3/uL Irion # (Auto) 0.6 (0.1-1.2) X10*3/uL Eos # (Auto) 0.3 (0.0-0.4) X10*3/uL Baso # (Auto) 0.1 (0.0-0.2) X10*3/uL Abs Immat Gran (auto) 0.02 (0.00-0.03) X10*3/uL Absolute Neuts (auto) 4.0 (2.0-8.3) x10*3/uL Absolute Nucleated RBC 0.000 (0.0-0.012) X10*3/uL Nucleated RBC % (auto) 0.0 (0.0-0.2) /100WBC Sodium 140 (135-145) mmol/L Potassium 3.8 (3.3-5.1) mmol/L Chloride 109 H (96-108) mmol/L Carbon Dioxide 22 (22-29) mmol/L Anion Gap 13 (12-20) BUN 16 (9-16) mg/dL Creatinine 0.69 (0.5-1.4) mg/dL Estim Creat Clear Calc 139.8 Estimated GFR > 60 Random Glucose 105 (60-115) mg/dL Calcium 8.5 (8.4-10.2) mg/dL Total Bilirubin 0.2 (0.0-1.0) mg/dL AST 20 (5-31) U/L ALT 14 (0-31) U/L Alkaline Phosphatase 59 (39-117) U/L Total Protein 7.3 (6.5-8.0) g/dL Albumin 4.2 (3.5-5.0) g/dL Lipase 21 (8-78) U/L Beta HCG, Quant < 2 mIU/mL Radiology Impression Discussion of test interpretation with radiology: I have reviewed the radiologist's reading. (Small amount of free fluid in the pelvis. Multiple prominent vessels in the left adnexa can be seen in the setting of pelvic congestion syndrome. Clinical correlation is recommended.) Tests considered The following testing was considered but not selected: CT abdomen and pelvis with IV contrast Prescription Management I considered prescription management with: Pain Medication Medications Administered Discontinued Medications Generic Name Dose Route Start Last Admin Trade Name Freq PRN Reason Stop Dose Admin Ketorolac Tromethamine 15 mg 05/13/25 06:41 05/13/25 07:05 Ketorolac Tromethamine 15 Mg/Ml Vial IM 05/13/25 06:42 15 mg ONCE ONE Administration Discharge Plan Discharge Clinical Impression: Left lower quadrant abdominal pain Additional Instructions: I recommend you take 400 mg ibuprofen every 6 hours for the rest of the day today, warm compresses, ibuprofen tends to work better than Tylenol, your blood work is reassuring, ultrasound without abnormal ovaries, there was a finding of multiple prominent vessels to the left ovary, the radiologist noted that this can be seen in the setting of pelvic congestion syndrome however this is something that is just mentioned by radiologist and really has to be correlated clinically and addressed by an radiation oncology nurse on outpatient basis, any other issues concerns come back to the ER for re-evaluation Prescriptions: No Action amoxicillin-pot clavulanate 875-125 mg tablet 1 tab PO BID 10 Days Qty: 20 0RF nitrofurantoin monohyd/m-cryst [Macrobid] 100 mg capsule 100 mg PO Q12H 7 Days Qty: 13 0RF Rx Instructions: must administer with a meal/food phenazopyridine 100 mg tablet 100 mg PO TID Qty: 6 0RF ibuprofen 600 mg tablet 600 mg PO Q6H PRN (Reason: pain) Qty: 30 0RF acetaminophen [Tylenol Extra Strength] 500 mg tablet 1,000 mg PO Q8H PRN (Reason: pain) Qty: 30 0RF cyclobenzaprine 5 mg tablet 5 mg PO TID PRN (Reason: muscle spasm) Qty: 14 0RF lidocaine 5 % adhesive patch,medicated 1 patch topical DAILY Qty: 30 0RF Rx Instructions: leave on most painful area for up to 12 hrs prednisone 20 mg tablet 40 mg PO DAILY 5 Days Qty: 10 0RF diphenhydramine HCl [Benadryl] 25 mg capsule 25 mg PO TID PRN (Reason: allergic reaction) Qty: 21 0RF famotidine [Pepcid] 20 mg tablet 20 mg PO BID 5 Days Qty: 10 0RF amoxicillin-pot clavulanate 875-125 mg tablet 1 tab PO BID Qty: 20 0RF Print Language: Yoruba
[2025-05-13 07:06] VITALS: BP 144/94; PULSE 74; RESP 15; TEMP 36.4; O2SAT 100
--- NOTE | 2025-05-13 07:13 | PC.NURSE ---
a&ox4. vss and up to date. pt presents to the ED c/o nonradiating LLQ pain that started x 0100 this morning. pt denies any trauma. tender on palpation. denies n/v/d/fevers/chills/urinary sx. pt reports she started her period last night which she states seems normal to her baseline. denies chance of - LMP 04/11. no new sexual partners. pt otherwise pending US to be completed at this time. plan of care ongoing. call grover placed within reach.
--- NOTE | 2025-05-13 07:47 | PC.NURSE ---
pt returned from US at this time. results pending. call grover placed within reach.
[2025-05-13 08:27] VITALS: BP 144/94; PULSE 74; RESP 15; TEMP 36.4; O2SAT 100
== END 2025-05-13 08:29 | disposition home or self-care (01) ==
PROVIDERS: Emergency Provider Emergency Medicine; PCP Family Medicine
DX: R10.32 Left lower quadrant pain (principal)
CPT/HCPCS: 36415; 76830; 76856; 80053; 83690; 84702; 85025; 96372; 96375; 99284; J1885

== ENCOUNTER → 2025-05-13 06:41 | Outpatient (BNV) | payer MEDICAID, SELFPAY | PROVIDERS: Emergency Provider Emergency Medicine; PCP Family Medicine; Visit Provider Radiology Diagnostic Radiology | DX: R10.32 Left lower quadrant pain (principal) | CPT/HCPCS: 76830; 76856 ==

== ENCOUNTER 2025-06-29 12:06 | Outpatient (REF) | payer MEDICAID, SELFPAY ==
--- OUTSIDE RECORDS SUMMARY | 2025-06-29 15:23 | XMS_ITS | Encounter Summary ---
Author Organization [employer] Address [address] [facility] [address] [place] [address] Care Team Providers Care Derrick Boat Lever Operator Name Role Phone Magalys Leslie DO Primary Care Provider [phone] Encounter Details Date Type Department Care Team (Late st Contact Info) Description 09/22/2022 Abstract [facility] [address] [place] [address] [phone] Renate Arreguin RN [address] [place], [place] [phone] Social History Tobacco Use Types Packs/Day Years [...] as of this encounter Plan of Treatment Upcoming Encounters Date Type Department Care Team (Late Contact Info) Description 07/08/2025 10:45 AM EST Office Visit [facility] [address] [place] [address] [phone] Magalys Leslie DO [address] [place], [place] [phone] documented as of this encounter Procedures Procedure Name Priority Date/Time Associated Diagnosis Comments PAP/HPV Routine 09/20/2022 documented in this encounter Results * Pap Smear (09/20/2022) Pap smear NIL us Historical Provider HEALTH MAINTENANCE Final Result documented in this encounter Visit Diagnoses Not on filedocumented in this encounter Care Teams Derrick Boat Lever Operator Relationship Specialty Start Date End Date Magalys Leslie DO [address] [place], [place] [phone] PCP - General Family Medicine 04/04/21 documented as of this encounter
--- OUTSIDE RECORDS SUMMARY | 2025-06-29 15:23 | XMS_ITS | Encounter Summary ---
Author Organization [employer] Address [address] [facility] [address] [place] [address] Care Team Providers Care Area Director Name Role Phone Magalys Leslie DO Primary Care Provider + [phone] Reason for Visit * Reason Comments Med Refill Encounter Details Date Type Department Care Team ([facility] st Contact Info) Description 11/27/2024 Refill [facility] [address] [place], [place] [phone] Magalys Leslie DO [address] [place], [place] [phone] BMI 40.0-44.9, adult (CMS/HCC) Social History Tobacco [...] Encounters Date Type Department Care Team (Late st Contact Info) Description 07/08/2025 10:45 AM EST Office Visit [facility] [address] [place] [address] Magalys Leslie DO [address] [place] [address] documented as of this encounter Visit Diagnoses Diagnosis BMI 40.0-44.9, adult (CMS/HCC) (HCC) documented in this encounter Additional Health Concerns Assessment Noted Time PHQ-9 Depression Total Score: 0 09/11/19 25 11:15 AM EST documented as of this encounter Care Teams Area Director Relationship Specialty Start Date End Date Magalys Leslie DO [address] [place] [phone] PCP - General Family Medicine 04/04/21 documented as of this encounter
--- OUTSIDE RECORDS SUMMARY | 2025-06-29 15:23 | XMS_ITS | Clinical Summary ---
Author Organization [employer] Address [address] [facility] 7t [place] [address] Care Team Providers Care Light Coil Winder Name Role Phone Magalys Leslie Primary Care Provider [phone] Allergies No known active allergies Medications lidocaine (Lidoderm) 5 % patch APPLY 1 PATCH TOPICALLY DAILY LEAVE ON MOST PAINFUL AREA FOR UP TO 12 HRS.KEEP OFF FOR 12 HRS 30 patch 3 03/13/20 24 Active UltiCare Alcohol Swabs 70 % pads TEST 2 TIMES DAILY. 100 each 11 04/07/20 24 Active FREESTYLE LITE test strip USE INSTRUCTED 100 strip 1 08/26/19 25 Active FreeStyle lancets USE TO TEST 2 TIMES DAILY 100 each 1 08/26/19 25 Active Blood Glucose Monitoring Suppl (FreeStyle Lite) w/Device kit USE DIRECTED 1 kit 09/05/19 25 Active omeprazole (PriLOSEC) [address] capsule Take 1 capsule (20 mg) by mouth before breakfast and before evening meal. Do not crush or chew. 180 capsule 3 09/11/19 25 026 Active acetaminophen (Tylenol 8 Hour) 650 MG ER tabletIndicati ons:Muscle spasm of back Take 1 tablet (650 mg) by mouth every 8 (eight) hours if needed for mild pain. Do not crush, chew, or split. 60 tablet 3 09/11/19 25 026 Active methocarbamol (Robaxin) 750 MG tablet Take 1 tablet (750 mg) by mouth if needed in the morning, at noon, and at bedtime for muscle spasms. 60 tablet 3 09/11/19 25 026 Active Tirzepatide-We ight Management (Zepbound) 2.5 MG/0.5ML solution auto-injector Inject 0.5 mL (2.5 mg) under the skin 1 (one) time per week. 2 mL 3 09/11/19 Active naproxen (Naprosyn) 500 MG tablet Take 1 tablet (500 mg) by mouth if needed in the morning and at bedtime for mild pain. 30 tablet 1 09/11/19 25 Active Diclofenac Sodium 1 % gel APPLY 2 G TOPICALLY IF NEEDED IN THE MORNING, AT NOON, IN THE EVENING, AND AT BEDTIME (PAIN). 100 g 3 01/06/20 25 Active docusate sodium (Colace) 100 MG capsule TAKE 1 CAPSULE (100 MG) BY MOUTH IN THE MORNING AND AT BEDTIME NEEDED FOR CONSTIPATION 180 capsule 3 03/03/20 Active polycarbophil (Fibercon) 625 MG tablet Take 1 tablet (625 mg) by mouth 2 times daily. 180 tablet 3 03/03/20 25 Active escitalopram (Lexapro) 10 MG tablet Take 1 tablet (10 mg) by mouth Once per day. 30 tablet 2 03/03/20 25 Active esomeprazole (NexIUM) [address] capsule Take 1 capsule (20 mg) by mouth before breakfast and before evening meal. Do not open capsule. 180 capsule 3 03/03/20 25 Active ibuprofen 600 MG tabletIndicati ons:Muscle spasm of back TAKE 1 TABLET BY MOUTH EVERY 8 HOURS NEEDED FOR MILD PAIN OR MODERATE PAIN FOR UP TO 10 DAYS 30 tablet 05/14/20 25 Active phentermine 37.5 MG capsule TAKE 1 CAPSULE (37.5 MG) BY MOUTH DAILY BEFORE BREAKFAST. 30 capsule 1 06/10/20 25 Active topiramate (Topamax) 25 MG tablet TAKE 1 TABLET BY MOUTH DAILY AT BEDTIME. 30 tablet 2 06/10/20 25 Active phentermine 37.5 MG capsule Take 1 capsule (37.5 mg) by mouth before breakfast. 30 capsule 2 03/03/20 25 Discontinued topiramate (Topamax) 25 MG tablet Take 1 tablet (25 mg) by mouth at bedtime. 30 tablet 2 03/03/20 25 025 Discontinued Active Problems Problem Noted Date Diagnosed Date Chronic gastroesophageal reflux disease 09/11/19 Anxiety 01/26/2023 History of tobacco use 01/26/2023 BMI 38.0-38.9,adult 09/20/2022 History of COVID-19 02/23/2022 Overview (09/20/2022): Problem added by Discern Expert Resolved Problems Problem Noted Date Diagnosed Date Resolved Date Muscle spasm of back 01/09/2024 025 Encounters Date Type Department Care Team Description 06/18/2025 Telephone [facility] [address] [place] [address] Magalys Leslie, Recall Appointment 06/18/2025 Travel 06/08/2025 Refill [facility] [address] [place], [place] [phone] Magalys Leslie, 06/05/2025 Refill [facility] [address] [place], [place] [phone] Magalys Leslie, 05/13/2025 Refill [facility] [address] [place] [address] Magalys Leslie, Muscle spasm of back 05/13/2025 Orders Only GENERIC EXTERNAL DATA DEPARTMENT Provider, Generic External Data from Last 3 Months Immunizations Immunization Administration [...] 03/03/2025 9:06 AM EDT Plan of Treatment Upcoming Encounters Date Type Department Care Team (Late st Contact Info) Description 07/08/2025 10:45 AM EST Office Visit [facility] [address] [place] [address] Magalys Leslie, DO [address] [place] [address] Health Maintenance Due Date Last Done Comments Family Planning (PISQ) 2011 HPV Vaccines (1 - 3-dose series) 2011 Hepatitis B Vaccines (1 of 3 - 19+ 3-dose series) 2015 COVID-19 Vaccine (3 - 2024- season) 2025 08/30/2021, 08/08/2021 Influenza [...] Procedure Name Priority Date/Time Associated Diagnosis Comments US PELVIS TRANSVAGINAL Routine 7:28 AM EST LIPASE Routine 05/13/2025 5:39 AM [...] Recently Relevant to Health Maintenance Results * US Pelvis Transvaginal (05/13/2025 7:28 AM EST) Anatomical Region Laterality Modality Pelvis Ultrasound 05/13/2025 7:28 AM EST Narrative 05/13/2025 8:15 AM EST [address] [address] Ultrasound Report Signed Patient: Kandace Bledsoe MR#: [id number] : 1995 Acct:[id number] Age/Sex: 29 / F ADM Date: 05/13/25 Loc: HO.ED Attending Dr: Ordering Physician: Guillermo iPnk DO Date of Service: 05/13/25 Procedure(s): US pelvic and transvaginal Accession Number(s): [id number] cc: Magalys Leslie DO; Guillermo Pink DO Reason for Exam: left lower quadrant pain EXAMINATION: US PELVIS TRANSABDOMINAL AND TRANSVAGINAL HISTORY: left lower quadrant pain COMPARISON: There are no prior studies available for comparison. TECHNIQUE: Transabdominal and endovaginal real-time 2D bloom-scale ultrasound was performed. FINDINGS: Uterus: The uterus is normal in size, measuring 8.8 x 4.1 x 5.2 cm. Myometrium has a normal echotexture. No fibroids are identified. A linear echogenic focus is seen in the lower uterine segment on the right which may represent a calcification. Endometrium: The endometrial stripe measures 6 mm in thickness. Right ovary: The right ovary measures 3.5 x 1.8 x 1.4 cm. The right ovary is normal in size and echotexture. Left ovary: The left ovary measures 2.6 x 1.0 x 1.1 cm. The left ovary is normal in size and echotexture. There are multiple prominent vessels in the left adnexa. Pelvic fluid: There is a small amount of free fluid. US/US pelvic and transvaginal IMPRESSION: Small amount of free fluid in the pelvis. Multiple prominent vessels in the left adnexa can be seen in the setting of pelvic congestion syndrome. Clinical correlation is recommended. Electronically signed by: Naveed Butts MD 05/13/2025 08:12 AM [facility] Dictated By: Naveed Butts MD Signed By: <Electronically signed by Naveed Butts MD in OV> 05/13/25 0812 DD/ TD/TT: 05/13/25 0740 Registered Nurse Obstetrics: Procedure Note Donotuseinterpreter, Image - 05/13/[address] [address] Ultrasound Report Signed Patient: Kandace Bledsoe MR#: [id number] : 1995Acct:[id number] Age/Sex: 29 / FADM Date: 05/13/25 Loc: HO.ED Attending Dr: Ordering Physician: Guillermo Pink DO Date of Service: 05/13/25 Procedure(s): US pelvic and transvaginal Accession Number(s): [id number] cc: Magalys Leslie DO; Guillermo Pink DO Reason for Exam: left lower quadrant pain EXAMINATION: US PELVIS TRANSABDOMINAL AND TRANSVAGINAL HISTORY: left lower quadrant pain COMPARISON: There are no prior studies available for comparison. TECHNIQUE: Transabdominal and endovaginal real-time 2D bloom-scale ultrasound was performed. FINDINGS: Uterus: The uterus is normal in size, measuring 8.8 x 4.1 x 5.2 cm. Myometrium has a normal echotexture. No fibroids are identified. A linear echogenic focus is seen in the lower uterine segment on the right which may represent a calcification. Endometrium: The endometrial stripe measures 6 mm in thickness. Right ovary: The right ovary measures 3.5 x 1.8 x 1.4 cm. The right ovary is normal in size and echotexture. Left ovary: The left ovary measures 2.6 x 1.0 x 1.1 cm. The left ovary is normal in size and echotexture. There are multiple prominent vessels in the left adnexa. Pelvic fluid: There is a small amount of free fluid. US/US pelvic and transvaginal IMPRESSION: Small amount of free fluid in the pelvis. Multiple prominent vessels in the left adnexa can be seen in the setting of pelvic congestion syndrome. Clinical correlation is recommended. Electronically signed by: Naveed Butts MD 05/13/2025 08:12 AM EST RP Dictated By: Naveed Butts MD Signed By: <Electronically signed by Naveed Butts MD in OV> 05/13/2512 DD/ TD/TT: 05/13/2540 Registered Nurse Obstetrics: us [facility] External Provider IMG US PROCEDURES Final Result * (ABNORMAL) CBC auto differential (05/13/2025 5:39 AM EST) White Blood Count 7.2 4.8 - 10.8 X10*3/uL [facility] Red Blood Count 4.78 4.20 - 5.50 X10*6/uL [facility] Hemoglobin 12.3 12.0 - 16.0 g/dl [facility] Hematocrit 37.4 37.0 - 47.0 % [facility] Mean Corpuscular Volume 78.2(L) 80.0 - 98.0 fL [facility] Mean Corpuscular Hemoglobin 25.7(L) 27.0 - 33.0 pg [facility] Mean Corpuscular HGB Conc 32.9 31.0 - 35.0 g/dl [facility] Red Cell Distribution Width 13.6 11.0 - 16.0 % [facility] Platelet Count 254 160 - 400 X10*3/uL [facility] Mean Platelet Volume 9.9 9.4 - 12.3 fL [facility] Neutrophils Percent Auto 55.5 45 - 73 % [facility] Imm Gran Pct Auto 0.3 0.0 - 0.4 % [facility] Lymphocytes Percent Auto 31.5 20 - 40 % [facility] Monocytes Percent Auto 8.1 2 - 11 % [facility] Eosinophils Percent Auto 3.9 0 - 4 % [facility] Basophils Percent Auto 0.7 0 - 2 % [facility] NRBC Pct Auto 0.0 0.0 - 0.2 /100WBC [facility] Neutrophils Absolute Auto 4.0 2.0 - 8.3 x10*3/uL [facility] Imm Gran Abs Auto 0.02 0.00 - 0.03 X10*3/uL [facility] Lymphocytes Absolute Auto 2.3 1.2 - 4.9 X10*3/uL [facility] Monocytes Absolute Auto 0.6 0.1 - 1.2 X10*3/uL [facility] Eosinophils Absolute Auto 0.3 0.0 - 0.4 X10*3/uL [facility] Basophils Absolute Auto 0.1 0.0 - 0.2 X10*3/uL [facility] NRBC Abs Auto 0.000 0.0 - 0.012 X10*3/uL [facility] 05/13/2025 5:39 AM EST 05/13/2025 5:42 AM EST Generic External Data Provider LAB BLOOD ORDERAB LES Final Result Performing Organization Address [facility] Co de Phone Number [facility] [address] [place] [phone] * Lipase (05/13/2025 5:39 AM EST) Pathologist [facility] Lipase 21 8 - 78 U/L [facility] 05/13/2025 5:39 AM EST 05/13/2025 5:42 AM EST Generic External Data Provider LAB BLOOD ORDERAB LES Final Result Performing Organization Address [facility] Phone Number [facility] [address] [place] [phone] * (ABNORMAL) Comprehensive Metabolic Panel (05/13/2025 5:39 AM EST) Pathologist [facility] Sodium 140 135 - 145 mmol/L [facility] Potassium 3.8 3.3 - 5.1 mmol/L [facility] Chloride 109(H) 96 - 108 mmol/L [facility] Carbon Dioxide 22 22 - 29 mmol/L [facility] Anion Gap 13 12 - 20 [facility] Urea Nitrogen (BUN) 16 9 - 16 mg/dL [facility] Creatinine, Serum 0.69 0.5 - 1.4 mg/dL [facility] Creatinine Clr Calc Pharmacy 139.8 [facility] Comment:Provided height and weight: 165.1 cm,97 kg.eGFR (calculated from the MDRD study equation) and eCrCl(calculated from the Cockcroft-Gault equation) are based ondifferent parameters and may not yield comparable results.If eCrCl result is absurd, please check patient'sheight/weight. Estimated Glomerular Filt Rate >60 [facility] Comment:Chronic Kidney Disea se: Estimated GFR < 60 mL/min/1.47j3Bwnqis Kidney Disease: Estimated GFR < 15 mL/min/1.73m2 Glucose 105 60 - 115 mg/dL [facility] Calcium 8.5 8.4 - 10.2 mg/dL [facility] Bilirubin, Total 0.2 0.0 - 1.0 mg/dL [facility] Aspartate Amino Transferase 20 5 - 31 U/L [facility] Alanine Aminotransferase 14 0 - 31 U/L [facility] Total Protein 7.3 6.5 - 8.0 g/dL [facility] Albumin Level 4.2 3.5 - 5.0 g/dL [facility] Alkaline Phosphatase 59 39 - 117 U/L [facility] 05/13/2025 5:39 AM EST 05/13/2025 5:42 AM EST us Generic External Data Provider LAB BLOOD ORDERAB LES Final Result [facility] [address] [place] [phone] * Hepatitis C Antibody with Reflex to HCV, RNA, Quantitative, Real-Time PCR (09/10/2024 12:41 PM EST) Hepatitis C Antibody Nonreactive Nonreactive [facility] Comment:Antibodies to HCV no t detected; does not exclude early acuteHCV infection. Blood Venous blood specimen / Unknown 09/10/2024 12:41 PM EST 09/10/2024 1:37 PM EST Magalys Leslie [employer] LAB BLOOD ORDERABLES Final R esult Performing Organization Address City/[facility]/ZIP Co de Phone Number [facility] [address] [place] [phone] * HIV-1/2 Antigen and Antibodies, Fourth Generation, with Reflexes (09/10/2024 12:41 PM EST) HIV AB/AG Nonreactive Nonreactive [facility] Comment:HIV-1 p24 Ag and/or HIV-1/HIV-2 Ab not detected.A test result that is nonreactive does not exclude thepossibility of exposure to or infection with HIV-1 and/orHIV-2. Nonreactive results in this assay for individualswith prior exposure to HIV-1 and/or HIV-2 may be due toantigen and antibody levels that are below the limit ofdetection of this assay.The Vir-Sec HIV Ag/Ab Combo assay result andsupplemental assay results should be interpreted inconjunction with the patient's clinical presentation,history and other laboratory results. If the results areinconsistent with clinical evidence, additional testing issuggested to confirm the result. Blood Venous blood specimen / Unknown 09/10/2024 12:41 PM EST 09/10/2024 1:37 PM EST Magalys Leslie [employer] LAB BLOOD ORDERABLES Final R esult Performing Organization Address City/[facility]/ZIP Co de Phone Number [facility] [address] [place] [phone] * (ABNORMAL) Lipid Panel, Standard (09/10/2024 12:41 PM EST) Triglycerides 118 <150 mg/dL [facility] Comment:Desirable Triglyceri de: less than 150 mg/dLBorderline High Triglyceride 150-199 mg/dLHigh Triglyceride: 200-499 mg/dLVery High Triglyceride: greater than or equal to 5OO mg/dL Cholesterol 125 <200 mg/dL [facility] Comment:Desirable Cholestero l: less than 200 mg/dLBorderline High Cholesterol: 200-239 mg/dLHigh Cholesterol: greater than 239 mg/dL LDL Cholesterol Calculated 62 <100 mg/dL [facility] Comment:Desirable LDL: less than 100 mg/dLNear Optimal/Above Optimal LDL: 110- 129 mg/dLBorderline High LDL: 130-159 mg/dLHigh LDL: 160-189 mg/dLVery High LDL: greater than or equal to 190 mg/dL HDL Cholesterol 40(L) >40 mg/dL [facility] Comment:Desirable HDL: great er than 40 mg/dL Note: This HDL assay may give artificially low results in patients with liver disease. Blood Venous blood specimen / Unknown 09/10/2024 12:41 PM EST 09/10/2024 1:37 PM EST Magalys Leslie DO LAB BLOOD ORDERABLES Final R esult [facility] [address] [place] [phone] * ThinPrep Pap with Reflex to HPV DNA (09/20/2022 4:28 PM EDT) Clinical Information: None given ALKALINE WATERt LMP: NONE GIVEN [facility] Prev. PAP: NONE GIVEN [facility] Prev. BX: NONE GIVEN [facility] SOURCE: None given [facility] Statement Of Adequacy: ALKALINE WATERt Comment: Satisfactory for evaluation. Endocervical/transformation zone component present. Interpretation/ Result: Negative for intraepithelial lesion or malignancy. ALKALINE WATERt Infection Shift in vaginal arina suggestive of bacterial vaginosis. [facility] [place] [facility]: [facility] Comment: JXM, CT(ASCP) CT screening location: [address] [address] (Always Message) [facility] [place] [email or web address] Comment: EXPLANATORY NOTE: The Pap is a [...] Magalys Leslie DO LAB CYTOLOGY ORDERABLES Savita marino Result [facility] [address], [place] [phone] [facility] [place] [email or web address] [address] [place] [phone] from Last 3 Months or Most Recently Relevant to Health Maintenance Insurance [employer] Care Teams Light Coil Winder Relationship Specialty Start Date End Date Magalys Leslie DO [address] [place] [phone] PCP - General Family Medicine 04/04/21
--- OUTSIDE RECORDS SUMMARY | 2025-06-29 15:23 | XMS_ITS | Encounter Summary ---
Author Organization [employer] Address [address] [facility] [address] [place] [address] Care Team Providers Care Dispensing Operator Name Role Phone Magalys Leslie DO Primary Care Provider + [phone] Reason for Visit * Reason Comments Med Refill Encounter Details Date Type Department Care Team ([facility] st Contact Info) Description 08/09/2023 Refill [facility] [address] [place] [address] Magalys Leslie DO [address] [place] [address] Social History Tobacco Use Types Packs/Day Years [...] Description 07/08/2025 10:45 AM EST Office Visit [facility] [address] [place] [address] Magalys Leslie DO [address] [place] [address] documented as of this encounter Visit Diagnoses Not on filedocumented in this encounter Care Teams Dispensing Operator Relationship Specialty Start Date End Date Magalys Leslie DO [address] [place] [address] PCP - General Family Medicine 04/04/21 documented as of this encounter
--- OUTSIDE RECORDS SUMMARY | 2025-06-29 15:23 | XMS_ITS | Clinical Summary ---
Author Organization [facility] ity Address [address] [place] [address] Care Team Providers Care Roaster Helper Name Role Phone Name, Maciej DOS SANTOS Primary Care Provider [phone] Surgical History Surgery Date Site/Laterality Comments SECTION [...] on file Sexual Orientation Not on file Plan of Treatment Health Maintenance Due Date Last Done Comments Hepatitis B Vaccines (1 of 3 - 19+ 3-dose series) 2015 Cervical Cancer Screening: P ap Smear 2017 HPV Vaccines (1 - 3-dose SCD M series) 2023 Depression Screening 07/09/2024 COVID-19 Vaccine ( - 2024-2 6 season) 2025 Influenza Vaccine (#1) 2025 07/03/2012 [...] age to complete this topic Care Teams Roaster Helper Relationship Specialty Start Date End Date Name, MD Maciej [address] [place], [place] PCP - General Internal Medicine 10/14/18
--- OUTSIDE RECORDS SUMMARY | 2025-06-29 15:23 | XMS_ITS | Encounter Summary ---
Author Organization [employer] Address [address] [facility] [address] [place] [address] Care Team Providers Care Loss Prevention Supervisor Name Role Phone Magalys Leslie DO Primary Care Provider + [phone] Reason for Visit * Reason Onset Date Comments Med Refill 11/27/2024 Encounter Details Date Type Department Care Team ([facility] st Contact Info) Description 11/27/2024 Refill [facility] [address] [place], [place] [phone] Maglays Leslie DO [address] [place], [place] [phone] BMI 40.0-44.9, adult (CMS/HCC) Social History Tobacco [...] documented in this encounter Plan of Treatment Upcoming Encounters Date Type Department Care Team (Late st Contact Info) Description 07/08/2025 10:45 AM EST Office Visit [facility] [address] [place] [address] Magalys Leslie DO [address] [place] [address] documented as of this encounter Visit Diagnoses Diagnosis BMI 40.0-44.9, adult (CMS/HCC) (HCC) documented in this encounter Additional Health Concerns Assessment Noted Time PHQ-9 Depression Total Score: 0 09/11/19 25 11:15 AM EST documented as of this encounter Care Teams Loss Prevention Supervisor Relationship Specialty Start Date End Date Magalys Leslie DO [address] [place] [address] PCP - General Family Medicine 04/04/21 documented as of this encounter
--- OUTSIDE RECORDS SUMMARY | 2025-06-29 15:23 | XMS_ITS | Encounter Summary ---
Author Organization [employer] Address [address] [facility] [address] [place] [address] Care Team Providers Care Glass Robot Operator Name Role Phone Magalys Leslie DO Primary Care Provider + [phone] Reason for Visit * Reason Onset Date Comments Med Refill 06/08/2025 Encounter Details Date Type Department Care Team ([facility] st Contact Info) Description 06/08/[address] [facility] [address] [place] [address] Magalys Leslie DO [address] [place] [address] Social History Tobacco Use Types Packs/Day Years [...] Description 07/08/2025 10:45 AM EST Office Visit [facility] [address] [place] [address] Magalys Leslie DO [address] [place] [address] documented as of this encounter Visit Diagnoses Not on filedocumented in this encounter Additional Health Concerns Assessment Noted Time PHQ-9 Depression Total Score: 0 09/11/19 25 11:15 AM EST documented as of this encounter Care Teams Glass Robot Operator Relationship Specialty Start Date End Date Magalys Leslie DO [address] [place] [address] PCP - General Family Medicine 04/04/21 documented as of this encounter
--- OUTSIDE RECORDS SUMMARY | 2025-06-29 15:24 | XMS_ITS | Encounter Summary ---
Author Organization [employer] Address [address] [facility] [address] [place] [address] Care Team Providers Care Cashier And Waiter/Waitress Name Role Phone Magalys Leslie DO Primary Care Provider + [phone] Reason for Visit * Reason Comments Med Refill Encounter Details Date Type Department Care Team ([facility] st Contact Info) Description 08/09/2023 Refill [facility] [address] [place] [address] Magalys Leslie DO [address] [place] [address] Social History Tobacco Use Types Packs/Day Years [...] Description 07/08/2025 10:45 AM EST Office Visit [facility] [address] [place] [address] Magalys Leslie DO [address] [place] [address] documented as of this encounter Visit Diagnoses Not on filedocumented in this encounter Care Teams Cashier And Waiter/Waitress Relationship Specialty Start Date End Date Magalys Leslie DO [address] [place] [address] PCP - General Family Medicine 04/04/21 documented as of this encounter
== END 2025-06-29 12:07 | disposition home or self-care (01) ==
LOC: HO.HHCL 12:06
PROVIDERS: PCP Family Medicine; Visit Provider Family Medicine
DX: Z11.1 Encounter for screening for respiratory tuberculosis (principal)
CPT/HCPCS: 36415; 86481